=== PATIENT | female | born 1965 | race African-American/Black ===

== ENCOUNTER 2016-12-14 14:27 | Inpatient (IN) ==
[2016-12-14] MEDS ORDERED: cefTRIAXone 1,000 MG in SODIUM CHLORIDE 0.9% 100 ML IV STA (14:55)
[2016-12-14] MEDS ORDERED: methylPREDNISolone SOD SUC 125 MG/2 ML VIAL IV STA (14:55)
[2016-12-14] MEDS ORDERED: NITROGLYCERIN 2% OINT 1 INCH/GM PACK TOP STA (14:55)
[2016-12-14] MEDS ORDERED: FUROSEMIDE 100 MG/10 ML VIAL IV STA (14:55)
[2016-12-14] MEDS ORDERED: ONDANSETRON 4 MG/2 ML VIAL IV STA (14:55)
[2016-12-14] MEDS ORDERED: ALBUTEROL/IPRATROPIUM 3 ML NEB RESP TX STA (14:55)
[2016-12-14] MEDS ORDERED: ASPIRIN 325 MG TABLET PO STA (14:55)
[2016-12-14] MEDS ORDERED: cefTRIAXone 1,000 MG VIAL ONE (15:05)
[2016-12-14] MEDS ORDERED: NITROGLYCERIN 2% OINT 1 INCH/GM PACK TOP ONE (15:05)
[2016-12-14] MEDS ORDERED: FUROSEMIDE 40 MG/4 ML VIAL ONE (15:05)
[2016-12-14] MEDS ORDERED: ONDANSETRON 4 MG/2 ML VIAL ONE (15:05)
[2016-12-14] MEDS ORDERED: methylPREDNISolone SOD SUC 125 MG/2 ML VIAL ONE (15:06)
[2016-12-14] MEDS ORDERED: FUROSEMIDE 20 MG/2 ML VIAL ONE (15:06)
[2016-12-14] MEDS ORDERED: ASPIRIN 325 MG TABLET ONE (15:06)
--- NOTE | 2016-12-14 15:06 | Emergency Department Note ---
Tre Martinez Brittany, am scribing for, and in the presence of, Reid Augustine MD 15:04. Fawn Martinez Charles R, MD, personally performed the services described in this documentation, ascribed by Colleen Toledo in my presence, and it is both accurate and complete 506 . Arrival - Arrival Chief Complaint: Neuro Stated Complaint: can't talk/possible stroke ED Nursing Triage Note: Pt c/o difficulty speaking, Dizzy, ALVAREZ, John upper ext weakness, and SOB since yesterday. Mode of Arrival: Wheelchair Limitations: No Limitations Source: Patient Time Seen by Provider: 12/14/16 14:49 - History of Present Illness HPI Narrative: This is a 51 y/o black female,who presents to the ED for further evaluation of CVA like Sx. She states she noticed her sugar was high yesterday. She reports she has had a ALVAREZ, cough, and SOB along with the elevated BS. She reports the SOB is worse when laying down at night. She reports her right foot feels "heavy , like there is sand in between her toes." She also reports numbness to her hands bilaterally. Pt denies slurred speech. Pt has no other complaints/pain in the ED at this time. Pt has a PMHx of HTN and NIIMD. Pt has had a hysterectomy and hernia repair. Pt denies a family medical Hx. Pt drinks QAD and a current every day smoker, but denies the use of street drugs. Onset (ago): day(s) (Started yesterday) Consistency: constant Severity: moderate Allergies/Adverse Reactions: Allergies Allergy/AdvReac Type Severity Reaction Status Date / Time No Known Allergies Allergy Verified 10/03/15 14:09 Home Medications: Home Medications Medication Instructions Recorded Confirmed Type Doxazosin Mesylate 4 mg PO DAILY 12/14/16 12/14/16 History Valsartan 160 mg PO DAILY 12/14/16 12/14/16 History hydrALAZINE TAB [Apresoline Tab] 100 mg PO DAILY 12/14/16 12/14/16 History Review of System - Review of System 12 point system: reviewed and no additional remarkable complaints except as stated - Review of System Respiratory: Present: cough Cardiovascular: Present: dyspnea on exertion, orthopnea Neurological: Present: headache, weakness (Right foot feels "heavy" ), numbness (Numbness to both hands ) Medical,Surgical,& Family Hx - Medical History Cardio: History of: Hypertension Endocrine: History of: Diabetes Mellitus (NIDDM) (borderline diet controlled) - Surgical History Abdominal Surgeries: Surgical HX of: Hernia Repair Reproductive Surgeries: Surgical HX of;: Hysterectomy - Family History Family History: Reports;: Family Diabetes, Family Hypertension - Social History Smoking Status: Never smoker Frequency of Alcohol Use: Frequently (Every other day, per pt) Exam Vital Signs: Vital Signs Temperature 97 F L 12/14/16 15:37 Pulse Rate 136 H 12/14/16 16:00 Respiratory Rate 16 12/14/16 16:00 Blood Pressure 147/109 12/14/16 16:00 O2 Sat by Pulse Oximetry 100 12/14/16 16:00 - General General appearance: alert, in no apparent distress, in distress - Head Head exam: Present: atraumatic, normocephalic, normal inspection - Eye Eye exam: Present: normal appearance, PERRL, EOMI. Absent: nystagmus, miosis - ENT ENT exam: Present: normal exam, normal oropharynx, mucous membranes moist - Neck Neck exam: Present: normal inspection, full ROM, trachea midline. Absent: tenderness, meningismus, lymphadenopathy, thyromegaly - Chest Chest inspection: Present: normal inspection, symmetric chest wall rise. Absent : tenderness, rash, abscess - Respiratory Respiratory exam: Present: rales (Bilateral rales), wheezes (Bilateral wheezing) - Cardiovascular Cardiovascular exam: Present: regular rate, normal rhythm, normal heart sounds. Absent: murmur, rubs, gallop, clicks, JVD - Abdominal Exam Abdominal exam: Present: soft, normal bowel sounds. Absent: distention, tenderness, guarding, rebound, rigidity - Rectal Exam Rectal exam: Present: deferred - Extremities Exam Extremities exam: Present: normal inspection, full ROM, normal capillary refill. Absent: tenderness, pedal edema, joint swelling, calf tenderness - Back Exam Back exam: Present: normal inspection, full ROM. Absent: tenderness, muscle spasm, rashes - Neurological Exam Neurological exam: Present: alert, oriented X3, CN II-XII intact. Absent: motor sensory deficit - Psychiatric Psychiatric exam: Present: normal affect, normal mood. Absent: depressed, agitated, anxious, manic - Skin Skin exam: Present: warm, dry, intact, normal color. Absent: rash, cyanosis, diaphoresis, erythema, pallor, mottled Course - Consultations Consultation #1: Hospitalist will admit patient Time: 16:33 Results - Labs CBC & BMP: 12/14/16 15:26 12/14/16 15:26 - Diagnostic Findings Procedure: Chest x-ray: report reviewed by me (Continued cardiomegaly without vielka pulmonary edema. ), CT: report reviewed by me (CT head/brain wo con: No acute intracranial abnormality demonstrated. Chronic findings as detailed above. ) Critical Care Time Critical Care Time: Yes Total Critical Care Time: 60 Disposition Clinical Impression: Uncontrolled diabetes mellitus, Acute dyspnea, CHF (congestive heart failure), Elevated troponin, Peripheral neuropathy, Tobacco abuse, Bronchitis, Uncontrolled hypertension, Possible acute alcohol withdrawal Case discussed with: patient, patient's family Disposition: Still a Patient Condition: Guarded Time of Disposition: 16:35
--- NOTE | 2016-12-14 15:19 | CT Report ---
CT head/brain wo con Indication: Dizziness, headache, extremity numbness Comparison: CT brain dated March 26, 2016 Technique: Multiple axial tomographic images of the brain were obtained without the use of intravenous contrast. Findings: No acute intracranial hemorrhage or evidence of hydrocephalus. Midline structures are nondisplaced. Mild global volume loss. Periventricular and subcortical hypoattenuation again noted which is nonspecific but consistent with chronic microvascular ischemic change. Small encephalomalacia within the left temporal lobe consistent with old infarct. Paranasal sinuses and mastoid air cells are clear. IMPRESSION: No acute intracranial abnormality demonstrated. Chronic findings as detailed above. PROCEDURE INTERPRETED AT [facility] DEPARTMENT OF RADIOLOGY Final Report Signed by: Dr Sharad Harper
--- NOTE | 2016-12-14 15:24 | XRay Report ---
XR chest 2V Indication: SOB Comparison: Chest x-ray dated March 26, 2016 Technique: Frontal and lateral views of the chest Findings: Continued moderate cardiomegaly. Chronic change of the lungs without focal consolidation, pleural effusion, or pneumothorax. Osseous and surrounding soft tissue structures appear grossly unchanged. Dextroconvex curvature of the spine present. IMPRESSION: Continued cardiomegaly without vielka pulmonary edema. PROCEDURE INTERPRETED AT [facility] DEPARTMENT OF RADIOLOGY Final Report Signed by: Dr Sharad Harper
[2016-12-14 15:33] LABS: Basophils % 0.3 % (0.0-0.8); Eosinophils % 0.1 % (0.00-10.9); Hemoglobin 13.6 GM/DL (12.0-16.0); Immature Granulocytes % 0.2 %; Immature Granulocytes Absolute 0.02 #; Lymphocytes # 0.8 10*3/uL (1.4-4.0); Lymphocytes % 9.1 % (21.3-54.2); Mean Corpuscular HGB Conc 34.9 GM/DL (32-36); Mean Corpuscular Hemoglobin 34 PG (27-34); Mean Corpuscular Volume 96.8 FL (87-102); Mean Platelet Volume 11.4 FL (9.6-12.0); Monocytes # 0.4 10*3/uL (0.11-0.8); Neutrophils % 86.3 % (38.7-73.9); Platelet Count 172 T/CUMM (130-400); Red Blood Count 4.03 MC/CUMM (3.8-5.5); Red Cell Distribution Width 13.1 % (9.3-17.3); White Blood Count 9.2 T/CUMM (4-12)
[2016-12-14 15:57] LABS: Alanine Aminotransferase 50 U/L (13-56); Albumin 3.9 G/DL (3.4-5.0); Alkaline Phosphatase 101 U/L (45-117); Aspartate Amino Transferase 53 U/L (0-37); Blood Urea Nitrogen 37 MG/DL (7-18); Calcium 10.1 MG/DL (8.5-10.1); Glucose 257 MG/DL (74-106); Magnesium 1.8 MG/DL (1.8-2.4); Osmolality,Calculated 300.1 MOS/KG (273-304); Potassium 4.1 MMOL/L (3.5-5.1); Sodium 142 MMOL/L (136-145); Total Protein 8.1 G/DL (6.4-8.3); Troponin I Only 0.869 NG/ML (0.00-0.045)
[2016-12-14] MEDS ORDERED: LORazepam 2 MG/1 ML VIAL IV STA (16:34)
[2016-12-14] MEDS ORDERED: hydrALAZINE 20 MG/1 ML VIAL IV STA (16:34)
[2016-12-14] MEDS ORDERED: hydrALAZINE 20 MG/1 ML VIAL ONE (16:36)
[2016-12-14] MEDS ORDERED: LORazepam 2 MG/1 ML VIAL ONE (16:36)
--- NOTE | 2016-12-14 16:47 | EKG Report ---
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
[2016-12-14] MEDS ORDERED: ENOXAPARIN 40 MG/0.4 ML SYRINGE SUBCUT STA (16:57)
[2016-12-14] MEDS ORDERED: ENOXAPARIN 40 MG/0.4 ML SYRINGE ONE (16:58)
[2016-12-14 17:18] LABS: Apearance,Urine Slightly Hazy (Clear); Bilirubin,Urine Negative (Negative); Blood, Urine Negative (Negative); Glucose,Urine (UA) Negative (Negative); Ketones,Urine Negative (Negative); Mucus,Urine Occasional /LPF (Occasional); Nitrite,Urine Negative (Negative); Protein,Urine 100 MG/DL; RBC,Urine <1 /HPF (0-4); Squamous Epithelial Cell,Urine Occasional /HPF (0-10); Urine Color Yellow (Yellow); Urine Specific Gravity 1.006 (1.001-1.035); Urine Urobilinogen < 2.0 EU/DL (0.2-1.0); WBC,Urine 5 /HPF (0-6)
[2016-12-14] MEDS ORDERED: ACETAMINOPHEN 325 MG TABLET PO PRN (17:22)
[2016-12-14] MEDS ORDERED: BISACODYL 5 MG TABLET PO PRN (17:22)
[2016-12-14] MEDS ORDERED: ONDANSETRON 4 MG/2 ML VIAL IV PRN (17:22)
[2016-12-14] MEDS ORDERED: DOCUSATE SODIUM 100 MG CAPSULE PO PRN (17:22)
[2016-12-14 17:28] LABS: Barbiturates Screen,Urine Negative (Negative); Benzodiazepines Screen,Urine Negative (Negative); Cannabinoid Screen,Urine Negative (Negative); Opiate Screen,Urine Negative (Negative); Phencyclidine Screen,Urine Negative (Negative)
[2016-12-14] MEDS ORDERED: GLUCAGON 1 MG VIAL IM PRN (17:31)
[2016-12-14] MEDS ORDERED: DEXTROSE 50% 25 GM/50 ML VIAL IV PRN (17:31)
--- NOTE | 2016-12-14 17:35 | Hospitalist History & Physical ---
Assessment and Plan (1) Acute dyspnea Status: Acute Assessment and plan: CT ordered. No acute changes. ddimer neg. Monitor O2 saturations. Current Visit: Yes (2) Elevated troponin Status: Acute Assessment and plan: Serial troponins. Will repeat EKG in am. Consult cardiology for recs. Current Visit: Yes (3) Uncontrolled diabetes mellitus Status: Acute Assessment and plan: Monitor blood sugar. ACHS accuchecks. SSI ordered. Hemoglobin A1C ordered for am. Current Visit: Yes (4) Uncontrolled hypertension Status: Acute Assessment and plan: Monitor blood pressure. Prn hydralazine. Current Visit: Yes History of Present Illness Chief complaint: shortness of breath History of present illness: Ms. Abernathy is a 51 year old black female that presented to the ED today for further evaluation. Pt stated she was short of breath since yesterday and that she noted her hands to be numb bilaterally. She also noted that her blood sugar was increased last night. Pt is a smoker and drinks Blood Marcella's every other day. She has a history of stroke (about 13 years ago), htn, dm, hysterectomy and hernia repair. Pt. denies any slurred speech, changes in vision, loss of consciousness or fever. Also denies chest, flank, or leg pain or weakness in extremities. Pt. denies edema to any extremities. Pt does admit to intermittent night sweats and increased urinary frequency recently. Pt also states that she has a headache to the left muslim of her head along with a cough with white to greenish/yellow sputum. Pt's CT was negative but troponins were elevated so pt will be admitted for further evaluation. Home Medications Medication Instructions Recorded Confirmed Type Doxazosin Mesylate 4 mg PO DAILY 12/14/16 12/14/16 History Valsartan 160 mg PO DAILY 12/14/16 12/14/16 History hydrALAZINE TAB [Apresoline Tab] 100 mg PO DAILY 12/14/16 12/14/16 History Allergies Allergy/AdvReac Type Severity Reaction Status Date / Time No Known Allergies Allergy Verified 10/03/15 14:09 Medical,Surgical,& Family Hx - Medical History Cardio: History of: Hypertension Neurology: History of: Cerebrovascular Accident Endocrine: History of: Diabetes Mellitus (NIDDM) (borderline diet controlled) - Surgical History Abdominal Surgeries: Surgical HX of: Hernia Repair Reproductive Surgeries: Surgical HX of;: Hysterectomy - Family History Family History: Reports;: Family Diabetes, Family Hypertension - Social History Smoking Status: Current every day smoker (10 cigarettes a day) Frequency of Alcohol Use: Frequently (Every other day, per pt) - Constitutional Constitutional: Present: fatigue, night sweats. Absent: chills, fever(s) - EENT Eyes: Absent: loss of vision Nose, mouth and throat: Present: headache(s) - Cardiovascular Cardiovascular: Absent: chest pain at rest, edema - Respiratory Respiratory: Present: cough (productive), dyspnea - Gastrointestinal Gastrointestinal: Absent: abdominal pain, nausea, vomiting - Genitourinary Genitourinary: Present: urinary frequency. Absent: dysuria - Musculoskeletal Musculoskeletal: Absent: limited range of motion - Neurological Neurological: Present: headache(s), numbness. Absent: abnormal speech, confusion Exam - Constitutional General appearance: normal weight, no acute distress - Head Head exam: Present: normal inspection, normocephalic - Eye Eye exam: Present: EOMI Pupils: Present: MARCELO - Respiratory Respiratory exam: Present: clear to auscultation bilaterally - Cardiovascular Cardiovascular exam: Present: tachycardia - GI/Abdominal GI/Abdominal exam: Present: normal bowel sounds, soft. Absent: tenderness - Extremities Exam Extremities exam: Present: normal capillary refill, full ROM - Neurological Exam Neurological exam: Present: alert, oriented X3, normal gait - Psychiatric Psychiatric exam: Present: normal affect, normal mood - Skin Skin exam: Present: normal color, warm, dry Results - Labs CBC & BMP: 12/14/16 15:26 12/14/16 15:26 Lab Results: I have reviewed the past 24 hour labs
[2016-12-14] MEDS: INSULIN LISPRO 100 UNIT/ML SUBCUT SCH (21:22)
[2016-12-14] MEDS: hydrALAZINE 20 MG/1 ML VIAL IV PRN (22:31)
[2016-12-15] MEDS: hydrALAZINE 20 MG/1 ML VIAL IV PRN ×2 (05:01→17:40)
[2016-12-15 06:25] LABS: Basophils % 0.1 % (0.0-0.8); Hematocrit 34.6 VOL% (35.7-47.0); Hemoglobin 12.2 GM/DL (12.0-16.0); Immature Granulocytes % 0.4 %; Immature Granulocytes Absolute 0.04 #; Lymphocytes % 9.8 % (21.3-54.2); Mean Corpuscular HGB Conc 35.3 GM/DL (32-36); Mean Corpuscular Hemoglobin 34 PG (27-34); Mean Corpuscular Volume 95.8 FL (87-102); Mean Platelet Volume 11.5 FL (9.6-12.0); Monocytes # 0.8 10*3/uL (0.11-0.8); Monocytes % 8.6 % (1.7-12.7); Neutrophils % 81.1 % (38.7-73.9); Platelet Count 166 T/CUMM (130-400); Red Blood Count 3.61 MC/CUMM (3.8-5.5); Red Cell Distribution Width 12.9 % (9.3-17.3); White Blood Count 9.8 T/CUMM (4-12)
[2016-12-15 07:07] LABS: Albumin 3.4 G/DL (3.4-5.0); Bilirubin,Total 0.8 MG/DL (0.2-1.0); Calcium 9.2 MG/DL (8.5-10.1); Osmolality,Calculated 290.7 MOS/KG (273-304); Risk Ratio 3.74; Thyroid Stimulating Hormone 0.506 uIU/ml (0.358-3.74); Total Protein 7.3 G/DL (6.4-8.3); VLDL CHOLESTEROL 52.8 MG/DL
[2016-12-15 07:09] LABS: Troponin I Only 0.872 NG/ML (0.00-0.045)
--- NOTE | 2016-12-15 07:40 | EKG Report ---
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
--- NOTE | 2016-12-15 09:07 | Cardiology Consult Note ---
<Judith Bran E - Last Filed: 12/15/16 09:34> Assessment and Plan - Time spent with patient Time spent with patient: Greater than 30 minutes (due to assessment, plan, and documentation) (1) Acute dyspnea Status: Acute Assessment and plan: D-Dimer 0.8. Will check venous doppler BLE. Echocardiogram ordered. Current Visit: Yes (2) Elevated troponin Status: Acute Assessment and plan: Will check echocardiogram to assess cardiac function. This could be due to her elevated creatinine and tachycardia, but we will continue to monitor. Certainly , with her risk factors, she will need risk stratification, but it's possible this could be done on an outpatient basis. Will further discuss with Dr. Agustin and await her recommendations. Current Visit: Yes (3) Hyperlipidemia Status: Chronic Assessment and plan: Encouraged diet control and exercise. She has been trialed on cholesterol medication in the past but was unable to tolerate as it "made her feel bad." She is unsure what this medication was. A trial of Crestor may be an option, but she has no insurance so this may be too expensive for her. Current Visit: Yes (4) Uncontrolled hypertension Status: Acute Assessment and plan: Will adjust medications. Current Visit: Yes (5) Uncontrolled diabetes mellitus Status: Acute Assessment and plan: Will defer management to hospitalist. Current Visit: Yes (6) History of cerebrovascular accident Status: Chronic Current Visit: Yes (7) Tobacco abuse Status: Chronic Assessment and plan: Spent greater than 5 minutes discussing risks of tobacco use and benefits of total cessation. Current Visit: Yes History of Present Illness - Data of Consult Patient: new to practice Consult date: 12/14/16 Requesting Physician: Jose Ponce Primary care physician: Silvia Hill - Consult Narrative Reason for consult: SOB, elevated troponin History of present illness: Ms. 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 Her primary care provider is Ms. Hill, MEDICAL RECEPTIONIST MEDICAL ASSISTANT at the [facility]. She has a history of CVA approximately 13 years ago, hypertension, diabetes, hyperlipidemia, smoker. She has risk factors significant for hypertension, diabetes, hyperlipidemia, sedentary lifestyle, tobacco abuse. She has smoked for the last 30 years and currently is down to half a pack per day from 1 pack per day. She has no deficits from her previous stroke except for a little "heaviness" in her right foot when she walks. 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 She presented to the emergency room yesterday afternoon for further evaluation of dizziness and shortness of breath. She tells me that on Monday while at work , she got overheated and felt short of breath but once she stopped to rest and got to a room with cool air, she improved within 5-10 minutes. She also notes feeling bad on Monday. She notes her blood sugar was 300 and she was experiencing dizziness and disequilibrium. She also had some mild shortness of breath that lasted from 5-10 minutes and then went away after she got into a room with cool air. She also reports numbness and being unable to picker tender anything with her hands on Monday. She stayed at home all day and rested. Yesterday when she was at work she still had some dizziness and disequilibrium. She tells me that her coworkers informed her that she did not look well and insisted she go to the emergency room. Her glucose on initial lab was 257. She also complains of having a headache Monday and Monday. She has had a productive cough of white, and sometimes green, sputum for the past two weeks. She tells me she has had a sore throat from coughing and prior to the cough, she had lots of nasal congestion for which she has been taking over the counter cold medications. She denies PND, painful inspiration, chest pain at rest or on exertion, or shortness of breath at rest or exertion prior to current symptoms. She denies recent edema. She currently has no neurological deficits. Initial troponin was 0.869, second set of enzymes revealed troponin 0.9 with normal CK-MB and normal CPK. Third set of enzymes revealed troponin 0.872, normal CK-MB and normal CPK. Initial EKG showed sinus tachycardia with artifact. Repeat EKG this morning shows normal sinus rhythm with some inverted T -waves. She was noted to have elevated triglycerides and cholesterol on her lab work. She tells me she was previously on cholesterol medication but states it "made her feel bad." We could try Crestor, but given the fact that she has no insurance, it may be too expensive for her. She has undergone head CT which was negative for intracranial abnormality. D-Dimer was 0.8. Will further discuss with Dr. Agustin and await her recommendations. CC: Esdras Jo MD - Home Medications and Allergies Home Medications: Home Medications Medication Instructions Recorded Confirmed Type Doxazosin Mesylate 4 mg PO DAILY 12/14/16 12/14/16 History Valsartan 160 mg PO DAILY 12/14/16 12/14/16 History hydrALAZINE TAB [Apresoline Tab] 100 mg PO DAILY 12/14/16 12/14/16 History Allergies/Adverse Reactions: Allergies Allergy/AdvReac Type Severity Reaction Status Date / Time No Known Allergies Allergy Verified 10/03/15 14:09 Review of systems: - Constitutional: Present:fatigue, headache(s), As per HPI. Absent: anorexia, chills, daytime sleepiness, excessive sweating, fever(s), frequent falls, increased appetite, lethargy, malaise, night sweats, stops breathing during sleep, weakness, weight gain, weight loss, . - EENT Eyes: Present: As per HPI. Absent: blurry vision, diplopia, loss of vision Ears: Present: As per HPI. Absent: decreased hearing, ear discharge, ear pain Nose, mouth and throat: Present: headache(s), nasal congestion, sore throat, As per HPI. Absent: dysphagia, epistaxis, hoarseness, lip swelling, neck mass, neck pain, sinus pressure, throat swelling, tongue swelling, vertigo - Cardiovascular: Present: dyspnea, dyspnea on exertion, as per HPI. Absent: chest pain at rest, chest pain with activity, edema, claudication, diaphoresis, radiating jaw, neck or arm pain, lightheadedness, orthopnea, palpitations, PND - Respiratory: Present: dyspnea, dyspnea on exertion, productive cough, as per HPI. Absent: hemoptysis, wheezing, snoring, pain on inspiration - Gastrointestinal: Present: As per HPI. Absent: abdominal pain, bloating, change in bowel habits, constipation, diarrhea, heartburn, hematemesis, hematochezia, loose stools, melena, nausea, vomiting - Genitourinary: Present: As per HPI. Absent: difficulty urinating, dysuria, flank pain, hematuria, nocturia, urinary frequency, urinary incontinence - Musculoskeletal: Present: As per HPI. Absent: arthralgias, back pain, joint swelling, limited range of motion, muscle cramps, muscle weakness, myalgias - Neurological: Present: dizziness, headache(s), abnormal gait, abnormal speech , disequilibrium, As per HPI. Absent: behavioral changes, confusion, convulsions , focal weakness, frequent falls, memory loss, numbness, paresthesias, radicular pain, syncope, tremor(s) - Psychiatric: Present: As per HPI. Absent: anxiety, confusion, depression, panic attacks - Endocrine: Present: fatigue, As per HPI. Absent: cold intolerance, heat intolerance, polydipsia, polyphagia - Hematologic/Lymphatic: Present: As per HPI. Absent: easy bleeding, easy bruising, lymphadenopathy Medical,Surgical,& Family Hx - Medical History Cardio: History of: Hypertension Neurology: History of: Cerebrovascular Accident Endocrine: History of: Diabetes Mellitus (NIDDM) (borderline diet controlled), Dyslipidemia - Surgical History Neurologic Surgeries: Patient denies: Neurologic Surgery Abdominal Surgeries: Surgical HX of: Hernia Repair Reproductive Surgeries: Surgical HX of;: Hysterectomy - Family History Family History: Reports;: Family Diabetes, Family Hypertension - Social History Smoking Status: Current every day smoker (10 cigarettes a day) Have you smoked in the last 12 months: Yes (has smoked for 30 years) Frequency of Alcohol Use: Frequently (Every other day, per pt) Type of Drug Use: None Marital Status: Functional capacity: independent ambulation Physical Examination Vital Signs Temp Pulse Resp BP Pulse Ox 97.0 F L 84 20 121/87 97 12/14/16 14:28 12/14/16 14:28 12/14/16 14:28 12/14/16 14:28 12/14/16 14:28 Other: General: Present: Appears Well, No Apparent Distress. Pleasant and cooperative. Appears comfortable. HEENT: Present: PERRL, Normocephaly, atraumatic. Mucus Membranes Moist. No jaundice noted. Conjunctiva moist and clear, sclerae anicteric Neck: Present: Supple Neck, Midline Trachea, No Masses, No Bruit Cardiac: Present: Regular Rate and Rhythm, No Murmur Lungs: Present: Clear to auscultation bilaterally, no wheeze, rhonchi, rales. Neuro: Present: Awake, alert, and oriented x3. Moves all extremities well without hemiparesis or paralysis. Grossly Intact. Absent: Resting Tremor, Essential Tremor Abdomen: Present: Soft, Active Bowel Sounds, No Masses, Non-Tender, nondistended. No abdominal bruit or thrill noted. Skin: Present: Clear. Absent: Rash, No skin breakdown. Musculoskeletal: Present: No Fluid Collection, No Pain, Normal Range of Motion Extremities: Present: Normal Gait, No Clubbing, No Cyanosis, Upper Extr. Pulses 2+, Lower Extr. Pulses 2+, No edema. Capillary refill less than 3 seconds. Result/EKG - Labs CBC & BMP: 12/15/16 05:55 12/15/16 05:55 Lab Results: I have reviewed the past 24 hour labs Labs: Laboratory Results - last 24 hr 12/14/16 12/14/16 12/14/16 17:05 17:05 20:52 WBC RBC Hgb Hct MCV MCH MCHC RDW Plt Count MPV Neut % (Auto) Lymph % (Auto) [place] % (Auto) Eos % (Auto) Baso % (Auto) Neut # (Auto) Lymph # (Auto) [place] # (Auto) Eos # (Auto) Baso # (Auto) Immature Gran % Nucleated RBC % Immature Gran # Nucleated RBCs # Sodium Potassium Chloride Carbon Dioxide Anion Gap BUN Creatinine GFR Calculation BUN/Creatinine Ratio Glucose POC Glucose 372 H Hemoglobin A1c Calculated Osmolality Calcium Total Bilirubin AST ALT Alkaline Phosphatase Total Creatine Kinase CK-MB (CK-2) Troponin I B-Natriuretic Peptide Total Protein Albumin Globulin Albumin/Globulin Ratio Triglycerides Cholesterol LDL Cholesterol VLDL Cholesterol HDL Cholesterol Heart Disease Risk Ratio Free T4 TSH 3rd Generation Urine Color Yellow Urine Appearance Slightly hazy Urine pH 7.0 Ur Specific [place] 1.006 Urine Protein 100 Urine Glucose (UA) Negative Urine Ketones Negative Urine Blood Negative Urine Nitrate Negative Urine Bilirubin Negative Urine Urobilinogen < 2.0 H Urine Leukocytes Negative Urine RBC <1 Urine WBC 5 Ur Squamous Epith Cells Occasional Urine Mucus Occasional Ur Culture Indicated? Not indicated Urine Opiates Screen Negative Ur Barbiturates Screen Negative Ur Phencyclidine Scrn Negative U Amphetamine/Methamph Negative U Benzodiazepines Scrn Negative U Cocaine Metab Screen Negative U Cannabinoids Screen Negative 12/14/16 12/14/16 12/15/16 21:09 22:35 05:55 WBC RBC Hgb Hct MCV MCH MCHC RDW Plt Count MPV Neut % (Auto) Lymph % (Auto) [place] % (Auto) Eos % (Auto) Baso % (Auto) Neut # (Auto) Lymph # (Auto) [place] # (Auto) Eos # (Auto) Baso # (Auto) Immature Gran % Nucleated RBC % Immature Gran # Nucleated RBCs # Sodium Potassium Chloride Carbon Dioxide Anion Gap BUN Creatinine GFR Calculation BUN/Creatinine Ratio Glucose POC Glucose 268 H Hemoglobin A1c Calculated Osmolality Calcium Total Bilirubin AST ALT Alkaline Phosphatase Total Creatine Kinase 50 50 CK-MB (CK-2) 1.9 2.1 Troponin I 0.900 H 0.872 H B-Natriuretic Peptide Total Protein Albumin Globulin Albumin/Globulin Ratio Triglycerides Cholesterol LDL Cholesterol VLDL Cholesterol HDL Cholesterol Heart Disease Risk Ratio Free T4 TSH 3rd Generation Urine Color Urine Appearance Urine pH Ur Specific [place] Urine Protein Urine Glucose (UA) Urine Ketones Urine Blood Urine Nitrate Urine Bilirubin Urine Urobilinogen Urine Leukocytes Urine RBC Urine WBC Ur Squamous Epith Cells Urine Mucus Ur Culture Indicated? Urine Opiates Screen Ur Barbiturates Screen Ur Phencyclidine Scrn U Amphetamine/Methamph U Benzodiazepines Scrn U Cocaine Metab Screen U Cannabinoids Screen 12/15/16 12/15/16 12/15/16 05:55 05:55 05:55 WBC 9.8 RBC 3.61 L Hgb 12.2 Hct 34.6 L MCV 95.8 MCH 34 MCHC 35.3 RDW 12.9 Plt Count 166 MPV 11.5 Neut % (Auto) 81.1 H Lymph % (Auto) 9.8 L [place] % (Auto) 8.6 Eos % (Auto) 0.0 Baso % (Auto) 0.1 Neut # (Auto) 8.0 H Lymph # (Auto) 1.0 L [place] # (Auto) 0.8 Eos # (Auto) 0.0 Baso # (Auto) 0.0 Immature Gran % 0.4 Nucleated RBC % 0.0 Immature Gran # 0.04 Nucleated RBCs # 0.00 Sodium 138 Potassium 4.0 Chloride 102 Carbon Dioxide 23 Anion Gap 17.0 H BUN 45 H Creatinine 2.40 H GFR Calculation 30 BUN/Creatinine Ratio 18.00 Glucose 174 H POC Glucose Hemoglobin A1c Calculated Osmolality 290.7 Calcium 9.2 Total Bilirubin 0.80 AST 23 ALT 35 Alkaline Phosphatase 87 Total Creatine Kinase CK-MB (CK-2) Troponin I B-Natriuretic Peptide Total Protein 7.3 Albumin 3.4 Globulin 3.9 H Albumin/Globulin Ratio 0.8 L Triglycerides 264 H Cholesterol 269 H LDL Cholesterol 161.0 VLDL Cholesterol 52.8 HDL Cholesterol 72 H Heart Disease Risk Ratio 3.74 Free T4 0.95 TSH 3rd Generation 0.506 Urine Color Urine Appearance Urine pH Ur Specific [place] Urine Protein Urine Glucose (UA) Urine Ketones Urine Blood Urine Nitrate Urine Bilirubin Urine Urobilinogen Urine Leukocytes Urine RBC Urine WBC Ur Squamous Epith Cells Urine Mucus Ur Culture Indicated? Urine Opiates Screen Ur Barbiturates Screen Ur Phencyclidine Scrn U Amphetamine/Methamph U Benzodiazepines Scrn U Cocaine Metab Screen U Cannabinoids Screen 12/15/16 12/15/16 12/15/16 05:55 05:55 07:28 WBC RBC Hgb Hct MCV MCH MCHC RDW Plt Count MPV Neut % (Auto) Lymph % (Auto) [place] % (Auto) Eos % (Auto) Baso % (Auto) Neut # (Auto) Lymph # (Auto) [place] # (Auto) Eos # (Auto) Baso # (Auto) Immature Gran % Nucleated RBC % Immature Gran # Nucleated RBCs # Sodium Potassium Chloride Carbon Dioxide Anion Gap BUN Creatinine GFR Calculation BUN/Creatinine Ratio Glucose POC Glucose 153 H Hemoglobin A1c 7.3 H Calculated Osmolality Calcium Total Bilirubin AST ALT Alkaline Phosphatase Total Creatine Kinase CK-MB (CK-2) Troponin I B-Natriuretic Peptide 344 H Total Protein Albumin Globulin Albumin/Globulin Ratio Triglycerides Cholesterol LDL Cholesterol VLDL Cholesterol HDL Cholesterol Heart Disease Risk Ratio Free T4 TSH 3rd Generation Urine Color Urine Appearance Urine pH Ur Specific [place] Urine Protein Urine Glucose (UA) Urine Ketones Urine Blood Urine Nitrate Urine Bilirubin Urine Urobilinogen Urine Leukocytes Urine RBC Urine WBC Ur Squamous Epith Cells Urine Mucus Ur Culture Indicated? Urine Opiates Screen Ur Barbiturates Screen Ur Phencyclidine Scrn U Amphetamine/Methamph U Benzodiazepines Scrn U Cocaine Metab Screen U Cannabinoids Screen - EKG EKG results: interpreted by me, sinus rhythm (with T-wave abnormality) <Marilu Agustin - Last Filed: 12/15/16 23:09> History of Present Illness - Consult Narrative History of present illness: I personally interviewed and examined the patient, reviewed the chart and discussed medical decision making with Practitioner Shant. I have read this note and agree with the findings herein. SOB appears to be related to URI. Elevated Troponin is in a non-specific pattern. Will f/u echo. CC: Esdras Jo MD Physical Examination Vital Signs Temp Pulse Resp BP Pulse Ox 97.0 F L 84 20 121/87 97 12/14/16 14:28 12/14/16 14:28 12/14/16 14:28 12/14/16 14:28 12/14/16 14:28 Result/EKG - Labs CBC & BMP: 12/15/16 05:55 12/15/16 05:55 Labs: Laboratory Results - last 24 hr 12/15/16 12/15/16 12/15/16 05:55 05:55 05:55 WBC 9.8 RBC 3.61 L Hgb 12.2 Hct 34.6 L MCV 95.8 MCH 34 MCHC 35.3 RDW 12.9 Plt Count 166 MPV 11.5 Neut % (Auto) 81.1 H Lymph % (Auto) 9.8 L [place] % (Auto) 8.6 Eos % (Auto) 0.0 Baso % (Auto) 0.1 Neut # (Auto) 8.0 H Lymph # (Auto) 1.0 L [place] # (Auto) 0.8 Eos # (Auto) 0.0 Baso # (Auto) 0.0 Immature Gran % 0.4 Nucleated RBC % 0.0 Immature Gran # 0.04 Nucleated RBCs # 0.00 Sodium 138 Potassium 4.0 Chloride 102 Carbon Dioxide 23 Anion Gap 17.0 H BUN 45 H Creatinine 2.40 H GFR Calculation 30 BUN/Creatinine Ratio 18.00 Glucose 174 H POC Glucose Hemoglobin A1c Calculated Osmolality 290.7 Calcium 9.2 Total Bilirubin 0.80 AST 23 ALT 35 Alkaline Phosphatase 87 Total Creatine Kinase 50 CK-MB (CK-2) 2.1 Troponin I 0.872 H B-Natriuretic Peptide Total Protein 7.3 Albumin 3.4 Globulin 3.9 H Albumin/Globulin Ratio 0.8 L Triglycerides 264 H Cholesterol 269 H LDL Cholesterol 161.0 VLDL Cholesterol 52.8 HDL Cholesterol 72 H Heart Disease Risk Ratio 3.74 Free T4 TSH 3rd Generation 0.506 12/15/16 12/15/16 12/15/16 05:55 05:55 05:55 WBC RBC Hgb Hct MCV MCH MCHC RDW Plt Count MPV Neut % (Auto) Lymph % (Auto) [place] % (Auto) Eos % (Auto) Baso % (Auto) Neut # (Auto) Lymph # (Auto) [place] # (Auto) Eos # (Auto) Baso # (Auto) Immature Gran % Nucleated RBC % Immature Gran # Nucleated RBCs # Sodium Potassium Chloride Carbon Dioxide Anion Gap BUN Creatinine GFR Calculation BUN/Creatinine Ratio Glucose POC Glucose Hemoglobin A1c 7.3 H Calculated Osmolality Calcium Total Bilirubin AST ALT Alkaline Phosphatase Total Creatine Kinase CK-MB (CK-2) Troponin I B-Natriuretic Peptide 344 H Total Protein Albumin Globulin Albumin/Globulin Ratio Triglycerides Cholesterol LDL Cholesterol VLDL Cholesterol HDL Cholesterol Heart Disease Risk Ratio Free T4 0.95 TSH 3rd Generation 12/15/16 12/15/16 12/15/16 07:28 11:18 21:08 WBC RBC Hgb Hct MCV MCH MCHC RDW Plt Count MPV Neut % (Auto) Lymph % (Auto) [place] % (Auto) Eos % (Auto) Baso % (Auto) Neut # (Auto) Lymph # (Auto) [place] # (Auto) Eos # (Auto) Baso # (Auto) Immature Gran % Nucleated RBC % Immature Gran # Nucleated RBCs # Sodium Potassium Chloride Carbon Dioxide Anion Gap BUN Creatinine GFR Calculation BUN/Creatinine Ratio Glucose POC Glucose 153 H 172 H 152 H Hemoglobin A1c Calculated Osmolality Calcium Total Bilirubin AST ALT Alkaline Phosphatase Total Creatine Kinase CK-MB (CK-2) Troponin I B-Natriuretic Peptide Total Protein Albumin Globulin Albumin/Globulin Ratio Triglycerides Cholesterol LDL Cholesterol VLDL Cholesterol HDL Cholesterol Heart Disease Risk Ratio Free T4 TSH 3rd Generation
[2016-12-15] MEDS: INSULIN LISPRO 100 UNIT/ML SUBCUT SCH ×4 (09:17→21:09)
[2016-12-15] MEDS: VALSARTAN 160 MG TABLET PO SCH (09:29)
[2016-12-15] MEDS: PANTOPRAZOLE 40 MG TABLET PO SCH (09:29)
--- NOTE | 2016-12-15 10:11 | Ultrasound Report ---
Indication: shortness of breath Duplex scan of the bilateral lower extremity veins Technique: Duplex scan of the bilateral lower extremity veins using B-mode/grayscale imaging and Doppler spectral analysis and color flow Findings: Major venous structures of the bilateral lower extremity demonstrate a normal course and caliber. There is no evidence of deep vein thrombosis. No abnormal intrinsic echogenic lesions are demonstrated in the scanned blood vessels. Veins demonstrate good compressibility with normal color flow study and spectral analysis. Impression: Unremarkable duplex imaging of the bilateral lower extremity veins. No evidence of DVT PROCEDURE INTERPRETED AT [facility] DEPARTMENT OF RADIOLOGY Final Report Signed by: Shakir Snow
--- NOTE | 2016-12-15 11:08 | Hospitalist Progress Note ---
Assessment and Plan (1) Uncontrolled diabetes mellitus Status: Acute Current Visit: Yes (2) Elevated troponin Status: Acute Current Visit: Yes (3) Uncontrolled hypertension Status: Acute Current Visit: Yes Hospitalist: Subjective Interval history: No acute events overnight. Reports that she feels better today. Blood pressure still elevated, does not appear to have received any po medications overnight. Starting basal insulin. Restarting home medications. Cardiology evaluating. Starting coreg. Possible discharge soon. Exam - Constitutional Vitals: Period Temp Pulse Resp BP Sys/Huffman Pulse Ox Last 24 Hr 98.1 F-100.1 F 87-130 18-25 133-194/85-119 92-100 General appearance: over weight - Head Head exam: Present: normocephalic, atraumatic - Eye Eye exam: Present: EOMI Pupils: Present: MARCELO - ENT ENT exam: Present: normal exam - Neck Neck exam: Present: normal inspection - Respiratory Respiratory exam: Present: clear to auscultation bilaterally. Absent: rhonchi, wheezes - Cardiovascular Cardiovascular exam: Present: regular rate and rhythm - GI/Abdominal GI/Abdominal exam: Present: normal bowel sounds, soft. Absent: tenderness, rebound - Extremities Exam Extremities exam: Present: normal inspection - Back Exam Back exam: Present: normal inspection - Neurological Exam Neurological exam: Present: alert, oriented X3 - Psychiatric Psychiatric exam: Present: normal affect, normal mood - Skin Skin exam: Present: warm, intact Results - Labs CBC & BMP: 12/15/16 05:55 12/15/16 05:55
[2016-12-15] MEDS: CARVEDILOL 6.25 MG TABLET PO SCH ×2 (12:05→21:06)
[2016-12-15] MEDS: INSULIN NPH 100 UNIT/ML SUBCUT SCH (17:38)
[2016-12-16] MEDS: hydrALAZINE 20 MG/1 ML VIAL IV PRN (05:06)
[2016-12-16] MEDS: CARVEDILOL 6.25 MG TABLET PO SCH (08:32)
[2016-12-16] MEDS: PANTOPRAZOLE 40 MG TABLET PO SCH (08:32)
[2016-12-16] MEDS: VALSARTAN 160 MG TABLET PO SCH (08:32)
[2016-12-16] MEDS: INSULIN LISPRO 100 UNIT/ML SUBCUT SCH ×2 (08:33→12:13)
[2016-12-16] MEDS: INSULIN NPH 100 UNIT/ML SUBCUT SCH (08:34)
--- NOTE | 2016-12-16 09:34 | Discharge Summary ---
<Nishant Poncecorbin - Last Filed: 12/16/16 09:50> Hospital Course - Hospital Course Hospital Course: Ms. Abernathy is a 51 yr old black female that was admitted to the hospital on after presenting to the ED for further evaluation of shortness of breath and numbness to hands bilaterally. She has a history of stroke (about 13 years ago) , htn, dm, hysterectomy and hernia repair. Pt denied any other issues (chest pain, headache, cough, vision loss, or weakness) but the patient's troponins were elevated so pt was admitted for further eval. Serial enzymes were drawn. Pt 's troponins went from 0.[address] was negative. ddimer negative. Pt was also evaluated by cardiology. Elevated troponins possibly due to increase in creatinine and tachycardia. Outpatient testing suggested. SOB presumed to be secondary to URI. Echo to be performed. MD to follow. Pt.'s blood pressure has been slightly elevated during course of stay but coreg has been added to patient's medication regimen. Pt. has not had any further complaints of breathing or numbness. Pt. has been ambulating in hallways without distress. Pt. to be discharged home today. Diagnosis - Discharge Diagnosis (1) Acute dyspnea Status: Acute (2) Elevated troponin Status: Acute (3) Uncontrolled diabetes mellitus Status: Acute (4) Uncontrolled hypertension Status: Acute Specialty Discharge - Follow Up or Referrals Follow up with: Marilu Agustin MD [Physician] - (APPT. ON 12/29/16 AT 10:00 AT [facility] FOR ECHOCARDIOGRAM APPT. ON 01/06/17 AT 10:[address] AGUSTIN) Discharge Plan - Discharge Medications New Carvedilol [Coreg] 6.25 mg PO BID #30 tablet hydrALAZINE TAB [Apresoline Tab] 75 mg PO TID #90 tablet Discontinued hydrALAZINE TAB [Apresoline Tab] 100 mg PO DAILY Valsartan 160 mg PO DAILY Doxazosin Mesylate 4 mg PO DAILY - Follow Up or Referral Follow Up: Marilu Agustin MD [Physician] - (APPT. ON 12/29/16 AT 10:00 AT [facility] ECHOCARDIOGRAM APPT. ON 01/06/17 AT 10:[address] AGUSTIN) - Forms/Instructions Instructions: Angina (DC), Chronic Hypertension (DC) Exam - Constitutional Vitals: Period Temp Pulse Resp BP Sys/Huffman Pulse Ox Last 24 Hr 97.1 F-98.6 F 71-93 16-20 133-183/89-113 97-99 Discharge Results Procedures and tests throughout hospitalization: Pending Orders 12/14/16 21:09 Thiamin (Vitamin B1), WB Routine Labs on day of discharge: Labs from last 24 hours 12/16/16 12/16/16 12/15/16 12:08 07:55 21:08 POC Glucose 123 H 216 H 152 H 12/15/16 16:42 POC Glucose 193 H DS: Provider Date of admission: 12/14/16 16:35 Primary care physician: . No PCP Attending physician on admission: Esdras Jo MD Consults: 12/14/16 17:28 Consult to Pharmacy [CONS] Routine Reason for Pharmacy Consult: Adjust Meds Renal Funct Consult to Physician [CONS] Routine Comment: Consulting Provider: Marilu Agustin Discharging clinician: Jose Ponce NP <Esdras Jo - Last Filed: 12/16/16 12:25> Hospital Course - Hospital Course Hospital Course: Patient seen and examined with ADITHYA Ponce, agree with hospital course as outlined. Echocardiogram with moderate pericardial effusion, she will follow-up with Dr. Agustin in 3-4 weeks. Her medications have also been adjusted. - Time spent with patient Time with patient DS: Less than 30 minutes Diagnosis - Discharge Diagnosis (1) Uncontrolled diabetes mellitus Status: Chronic (2) Elevated troponin Status: Acute (3) Uncontrolled hypertension Status: Chronic Discharge Plan - Discharge Data Condition at Discharge: Stable Discharge Diet: heart healthy Activity: resume usual activities as tolerated Hygiene: no restrictions Weight Bearing at Discharge: full weight bearing Driving: no restrictions Contact your physician if you experience:: Nausea/Vomiting, Shortness of breath Exam - Constitutional General appearance: over weight - Head Head exam: Present: normocephalic, atraumatic - Eye Eye exam: Present: EOMI Pupils: Present: MARCELO - ENT ENT exam: Present: normal exam - Neck Neck exam: Present: normal inspection. Absent: tenderness - Respiratory Respiratory exam: Present: clear to auscultation bilaterally. Absent: rhonchi, wheezes - Cardiovascular Cardiovascular exam: Present: regular rate and rhythm - GI/Abdominal GI/Abdominal exam: Present: normal bowel sounds, soft. Absent: tenderness, rebound - Extremities Exam Extremities exam: Present: normal inspection - Back Exam Back exam: Present: normal inspection - Neurological Exam Neurological exam: Present: alert, oriented X3 - Psychiatric Psychiatric exam: Present: normal affect, normal mood - Skin Skin exam: Present: warm, intact
--- NOTE | 2016-12-16 10:15 | ECHO Report ---
Gabrielle Abernathy Exam Date: 12/15/2016 08:54 Referring Physician: Technologist: Paty George RDCS Age: 51 Ht (in): 70 Wt (lb): 180 Gender: F Exam Location: [facility] Echo Indications: Dyspnea, unspecified, Elevated troponin, Uncontrolled diabetes, Uncontrolled HTN, Nicotine dependence, cigarettes, uncomplicated, hx CVA, NIDDM, Chronic fatigue, unspecified, Cough BP: 190 / 119 HR: 101 Rhythm: Sinus Technical Quality: Fair IMPRESSIONS Normal LV systolic function, ejection fraction 60%. Grade 1/4 diastolic dysfunction. Moderate to severe concentric left ventricular hypertrophy. Moderate left atrial enlargement. Mild tricuspid regurgitation. Pulmonary artery pressures estimated at 47 mmHg. Moderate pericardial effusion without evidence of A knot. MEASUREMENTS (Male / Female) Normal Values 2D ECHO LV Diastolic Diameter PLAX 3.8 cm 4.2 - 5.9 / 3.9 - 5.3 cm LV Systolic Diameter PLAX 2.7 cm LV Fractional Shortening PLAX 28.8 % IVS Diastolic Thickness 1.7 cm 0.6 - 1.0 / 0.6 - 0.9 cm LVPW Diastolic Thickness 2.0 cm 0.6 - 1.0 / 0.6 - 0.9 cm RV Internal Dim ED PLAX 2.9 cm Aortic Root Diameter 3.3 cm LA Systolic Diameter LX 5.0 cm 3.0 - 4.0 / 2.7 - 3.8 cm DOPPLER TR Peak Velocity 303.0 cm/s TR Peak Gradient 36.7 mmHg FINDINGS Left Ventricle Normal left ventricular cavity size. Severe left ventricular hypertrophy. Left ventricular ejection fraction is estimated at 60 %. Right Ventricle The right ventricle is normal in size and function. Right Atrium Mild atrial enlargement in apical view (elongated RA). Left Atrium Moderate atrial enlargement in apical view (elongated LA). Mitral Valve Morphologically normal mitral valve without significant stenosis or prolapse. There is no mitral regurgitation. Aortic Valve Morphologically normal aortic valve without significant sclerosis or stenosis. There is no aortic regurgitation. Tricuspid Valve Morphologically normal tricuspid valve. Trace to mild tricuspid valve regurgitation. Tricuspid regurgitation velocities suggest a PAP of 47 mmHg. Pulmonic Valve Morphologically normal pulmonic valve without significant stenosis. There is no pulmonic regurgitation. Pericardium Moderate pericardial effusion. There is no evidence of tamponade not. There is no right-sided chamber collapse. Tricuspid inflow velocity has a 12% JAR inspiratory variation, and mitral inflow velocity has a 16% inspiratory variation. Aorta Normal ascending aorta dimension. Marilu Agustin MD (Electronically Signed) Final Date: 16 December 2016 10:14
--- NOTE | 2016-12-16 10:24 | Cardiology Progress Note ---
<Judith Bran Lidia - Last Filed: 12/16/16 10:25> Assessment and Plan - Time spent with patient Time spent with patient: Less than 30 minutes (1) Acute dyspnea Status: Acute Assessment and plan: D-Dimer 0.8. No evidence of DVT from bilateral lower extremity doppler. Echo revealed EF 60%, grade I/IV diastolic dysfunction, moderate to severe LVH, moderate left atrial enlargement, mild tricuspid regurgitation, PAP est at 47mmHg, moderate pericardial effusion without evidence of A knot. This was not felt to be due to ACS. Elevated troponin was in a non-specific pattern. I believe her SOB was related to an URI. (2) Elevated troponin Status: Acute Assessment and plan: Elevated Troponin is in a non-specific pattern. She will be scheduled for a follow up echocardiogram in 2-3 weeks prior to her follow up appointment with Dr. Agustin. (3) Hyperlipidemia Status: Chronic Assessment and plan: Encouraged diet control and exercise. She has been trialed on cholesterol medication in the past but was unable to tolerate as it "made her feel bad." She is unsure what this medication was. Further treatment may be pursued at follow up with PCP. (4) Uncontrolled hypertension Status: Acute Assessment and plan: Will adjust medications. She was placed on Coreg 6.25mg PO BID during this hospitalization in addition to her valsartan 160mg po daily and hydralazine 100mg PO daily. Given her renal insufficiency, her valsartan will need to be held and we will change her hydralazine to 75mg po TID. She will need to follow up with her primary care provider on Monday for BMP w/ Mg for further management of hypertension and diabetes. (5) Uncontrolled diabetes mellitus Status: Acute Assessment and plan: Will defer management to hospitalist. (6) History of cerebrovascular accident Status: Chronic (7) Tobacco abuse Status: Chronic Assessment and plan: Spent greater than 5 minutes discussing risks of tobacco use and benefits of total cessation. Cardiology - PN: Subj Interval history: Ms. Abernathy is resting in the bed upon exam today in no acute distress. She reports she had an uneventful night. She does tell me that she has some indigestion during the night and has felt her heart "flutter." Upon reviewing her monitor technician, she has had occasional PVCs but no other ectopy. Her potassium is 4.0. Discussed this patient with Dr. Jo and she will be discharged home today. Dr. Agustin has reviewed her echocardiogram and she was noted to have ejection fraction of 60%, grade 1 out of 4 diastolic dysfunction, moderate to severe LVH, mild TR, and a moderate effusion. She will follow-up in the clinic with Dr. Agustin in 3-4 weeks. She denies any further shortness of breath. Exam (Progress Note) - Constitutional Vitals: Period Temp Pulse Resp BP Sys/Huffman Pulse Ox Last 24 Hr 97.1 F-98.6 F 71-93 16-20 135-183/89-113 97-100 Exam: General: Present: Appears Well, No Apparent Distress. Pleasant and cooperative. Appears comfortable. HEENT: Present: PERRL, Normocephaly, atraumatic. Mucus Membranes Moist. No jaundice noted. Conjunctiva moist and clear, sclerae anicteric Neck: Present: Supple Neck, Midline Trachea, No Masses, No Bruit Cardiac: Present: Regular Rate and Rhythm, No Murmur Lungs: Present: Clear to auscultation bilaterally, no wheeze, rhonchi, rales. Neuro: Present: Awake, alert, and oriented x3. Moves all extremities well without hemiparesis or paralysis. Grossly Intact. Absent: Resting Tremor, Essential Tremor Abdomen: Present: Soft, Active Bowel Sounds, No Masses, Non-Tender, nondistended. No abdominal bruit or thrill noted. Skin: Present: Clear. Absent: Rash, No skin breakdown. Musculoskeletal: Present: No Fluid Collection, No Pain, Normal Range of Motion Extremities: Present: Normal Gait, No Clubbing, No Cyanosis, Upper Extr. Pulses 2+, Lower Extr. Pulses 2+, No edema. Capillary refill less than 3 seconds. Result/EKG - Labs CBC & BMP: 12/15/16 05:55 12/15/16 05:55 Lab Results: I have reviewed the past 24 hour labs Labs: Laboratory Results - last 24 hr 12/15/16 12/15/16 12/15/16 11:18 16:42 21:08 POC Glucose 172 H 193 H 152 H 12/16/16 07:55 POC Glucose 216 H - EKG EKG results: interpreted by me, sinus rhythm (with occasional PVCs. ) Specialty Discharge - Follow Up or Referrals Follow up with: Marilu Agustin MD [Physician] - (APPT. ON 12/29/16 AT 10:00 AT [facility] FOR ECHOCARDIOGRAM APPT. ON 01/06/17 AT 10:[address] [facility] [address] AGUSTIN) - Speciality Discharge Instructions Cardiology Instructions: She needs to follow up with her primary care provider, or needs to establish care with a provider, on Monday to follow up on her hypertension and diabetes. At that visit, she needs a BMP w/ Mg. <Marilu Agustin - Last Filed: 12/16/16 20:12> Cardiology - PN: Subj Interval history: I have personally interviewed and evaluated the patient, reviewed the chart and discussed medical decision-making with practitioner Shant. I have read this note and agree with her documentation here in. Exam (Progress Note) - Constitutional Vitals: Period Temp Pulse Resp BP Sys/Huffman Pulse Ox Last 24 Hr 97.2 F-98.6 F 71-86 16-20 133-183/89-113 97-99 Result/EKG - Labs CBC & BMP: 12/15/16 05:55 12/15/16 05:55 Labs: Laboratory Results - last 24 hr 12/15/16 12/15/16 12/16/16 16:42 21:08 07:55 POC Glucose 193 H 152 H 216 H 12/16/16 12:08 POC Glucose 123 H
[2016-12-16 11:30] VITALS: BP 133/89
[2016-12-16] MEDS ORDERED: hydrALAZINE 25 MG TABLET PO SCH (15:00)
== END 2016-12-16 13:35 | disposition home or self-care (01) | DRG 153 ==
LOC: N.ED 14:27 → N.EDINP 16:35 → N.TELES 17:03
PROVIDERS: ADMIT Internal Medicine; ATTEND Internal Medicine

== ENCOUNTER 2017-05-14 15:10 | Inpatient (IN) ==
[2017-05-14] MEDS ORDERED: HYDROmorphone 2 MG/1 ML VIAL IV STA (15:33)
[2017-05-14] MEDS ORDERED: CLINDAMYCIN INJ 900 MG in PREMIX 1 EACH IV STA (15:33)
[2017-05-14] MEDS ORDERED: methylPREDNISolone SOD SUC 125 MG/2 ML VIAL IV STA (15:35)
[2017-05-14] MEDS ORDERED: ONDANSETRON 4 MG/2 ML VIAL IV STA (15:35)
[2017-05-14] MEDS ORDERED: hydrALAZINE 20 MG/1 ML VIAL IV STA (15:39)
--- NOTE | 2017-05-14 15:39 | Emergency Department Note ---
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 pt states the side of her left neck is tender and the back of her throat feels like it is going to burst. pt is sweating and breathing fast. bs in triage is 181mg/dl Mode of Arrival: Wheelchair Limitations: No Limitations Source: Patient Time Seen by Provider: 05/14/17 15:33 - History of Present Illness HPI Narrative: This 51-year-old black female presents with abrupt onset of sore throat Monday with a rapid development of pain on swallowing and progression of difficulty in swallowing as time progressed. Notable in the last 48 hours has been a hot potato voice and visible mild left cheek and jaw swelling. She denies any shortness of breath in association with this and has had alleged chills and fever although she presents here afebrile. Notable is a history of diabetes, however, her blood sugars have been fairly well controlled during this with a blood sugar of 181 in triage. Although she has tried to control her sugar during this episode, she has failed to do so with her blood pressure. She presents with severe elevations in blood pressure but denies shortness of breath , chest pain, diaphoresis, headache, slurred speech, visual changes, or focal deficits in association with this. Of note, the patient is a heavy smoker. Currently she is in no acute medical distress. Onset (ago): day(s) (Patient presents 5 days post onset of symptoms) Allergies/Adverse Reactions: Allergies Allergy/AdvReac Type Severity Reaction Status Date / Time No Known Allergies Allergy Verified 01/31/17 21:46 Home Medications: Home Medications Medication Instructions Recorded Confirmed Type Aspirin Chew Tab 81 mg PO DAILY 01/28/17 01/31/17 History Doxazosin Mesylate 4 mg PO DAILY 01/28/17 01/28/17 History Metoprolol Succinate Xl [Toprol Xl] 100 mg PO DAILY 01/28/17 01/28/17 History Valsartan 160 mg PO DAILY 01/28/17 01/31/17 History hydroCHLOROthiazide 12.5 mg PO DAILY 01/28/17 01/31/17 History [Hydrochlorothiazide] Review of System - Review of System 12 point system: reviewed and no additional remarkable complaints except as stated - Review of System Constitutional: Present: as per HPI Eyes: Present: as per HPI Head/Ears/Nose/Throat: Present: see HPI Respiratory: Present: as per HPI Cardiovascular: Present: as per HPI Neurological: Present: as per HPI Medical,Surgical,& Family Hx - Medical History Cardio: History of: Hypertension Neurology: History of: Cerebrovascular Accident Endocrine: History of: Diabetes Mellitus (NIDDM) (borderline diet controlled), Dyslipidemia - Surgical History Neurologic Surgeries: Patient denies: Neurologic Surgery Abdominal Surgeries: Surgical HX of: Hernia Repair Reproductive Surgeries: Surgical HX of;: Hysterectomy - Family History Family History: Reports;: Family Diabetes, Family Hypertension - Social History Smoking Status: Current every day smoker Frequency of Alcohol Use: None Type of Drug Use: None Exam Physical Examination: GENERAL: Well developed, well nourished black female in no acute distress. HEENT: Normocephalic. Slight left facial and mandibular swelling no trauma. Moist mucous membranes. EOMI. PERRLA. ENT ears normal, nose normal, throat reveals massive left peritonsillar abscess NECK: Supple. Cervical adenopathy. CARDIAC: Regular. 1/4 linda, loud p2. Heart rate 130 CHEST: Clear to auscultation. No respiratory distress. O2 sat 100% ABDOMEN: Soft. Nontender. Active bowel sounds. EXTREMITIES: No trauma. Normal ROM. No pedal edema. SKIN: No diaphoresis. No rash. NEURO: Alert. Oriented 3. Motor, sensory, vibratory intact. Phonation flores she has classic hot potato voice. No focal deficits. Vital Signs: Vital Signs Temperature 97.6 F 05/14/17 16:58 Pulse Rate 130 H 05/14/17 16:58 Respiratory Rate 25 H 05/14/17 16:58 Blood Pressure 227/166 05/14/17 16:58 O2 Sat by Pulse Oximetry 100 05/14/17 15:12 Course - Reevaluation(s) Reevaluation #1: Advised patient of need for ENT intervention. 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 For this reason he desired an elective resection after stabilization of her other medical problems and in light of his recommendation for chronic steroids in regards to her airway compromise, he felt best that the hospitalist admit the patient given her diabetes and the severity of her hypertension. He would plan for surgical intervention in the next 24-48 hours. Consultation #2: Discussed with hospitalist service will admit for further evaluation treatment. Results - Labs CBC & BMP: 05/14/17 15:36 05/14/17 15:36 Labs: I reviewed the laboratory noted the elevated white count, low potassium, and renal azotemia - Diagnostic Findings Procedure: CT: image reviewed by me, report reviewed by me, pending (Left peritonsillar fossa mass and abscess. Also notable was diffuse adenopathy bilaterally of the neck as well as left maxillary sinus opacification) Disposition Clinical Impression: Left retropharyngeal abscess/mass, Poorly controlled hypertension, Hypokalemia , Diabetes Case discussed with: patient Disposition: Still a Patient Condition: Guarded Time of Disposition: 17:05
[2017-05-14] MEDS ORDERED: METOPROLOL TARTRATE 5 MG/5 ML VIAL IV STA (15:40)
[2017-05-14 15:44] LABS: Basophils # 0.1 10*3/uL (0.0-0.2); Basophils % 0.3 % (0.0-0.8); Eosinophils % 0.1 % (0.00-10.9); Hematocrit 34.5 VOL% (35.7-47.0); Hemoglobin 12.7 GM/DL (12.0-16.0); Immature Granulocytes % 2.1 %; Immature Granulocytes Absolute 0.37 #; Lymphocytes # 1.4 10*3/uL (1.4-4.0); Lymphocytes % 7.8 % (21.3-54.2); Mean Corpuscular HGB Conc 36.8 GM/DL (32-36); Mean Corpuscular Hemoglobin 34 PG (27-34); Mean Corpuscular Volume 93.2 FL (87-102); Mean Platelet Volume 11.2 FL (9.6-12.0); Monocytes # 2.2 10*3/uL (0.11-0.8); Monocytes % 12.5 % (1.7-12.7); Neutrophils # 13.5 10*3/uL (1.4-7.4); Neutrophils % 77.2 % (38.7-73.9); Platelet Count 214 T/CUMM (130-400); Red Cell Distribution Width 13.9 % (9.3-17.3); White Blood Count 17.5 T/CUMM (4-12)
[2017-05-14] MEDS ORDERED: SODIUM CHLORIDE 0.9% 1,000 ML IV STA (15:48)
[2017-05-14] MEDS ORDERED: methylPREDNISolone SOD SUC 125 MG/2 ML VIAL ONE (15:57)
[2017-05-14] MEDS ORDERED: ONDANSETRON 4 MG/2 ML VIAL ONE (15:57)
[2017-05-14] MEDS ORDERED: CLINDAMYCIN INJ 50 ML IV ONE (15:57)
[2017-05-14] MEDS ORDERED: HYDROmorphone 2 MG/1 ML VIAL ONE (15:57)
[2017-05-14] MEDS ORDERED: hydrALAZINE 20 MG/1 ML VIAL ONE (15:57)
[2017-05-14 16:04] LABS: PT Patient Result 10.7 SECS; Partial Thromboplastin Time 34.1 SECS (0-40)
[2017-05-14 16:14] LABS: Band Neutrophils 2 % (0-10); Eosinophils 1 % (0-10); Lymphocytes 10 % (20-55); Platelet Estimate Normal; Segmented Neutrophils 80 % (50-85); Total Cells Counted 100
[2017-05-14 16:17] LABS: Albumin 2.8 G/DL (3.4-5.0); Bilirubin,Total 0.5 MG/DL (0.2-1.0); Calcium 8.8 MG/DL (8.5-10.1); Osmolality,Calculated 287.2 MOS/KG (273-304); Potassium 3.2 MMOL/L (3.5-5.1); Total Protein 8.2 G/DL (6.4-8.3)
--- NOTE | 2017-05-14 16:26 | CT Report ---
Exam: CT soft tissue neck wo con Date: 05/14/2017 3:58 PM Comparison: None Indication: Peritonsillar abscess Total DLP: 293.3 mGy*cm Technical: Axial sagittal and coronal imaging was obtained without contrast enhancement. This does limit the examination. Dose reduction was performed with decreasing kv and mA and automated exposure Findings: The lower brainstem cerebellum and cerebral hemispheres as imaged appear intact. The paranasal sinuses reveal inflammation in the left maxillary antrum with near complete opacification. Remaining paranasal sinuses are intact. The mastoids are unremarkable. The examination reveals soft tissue mixed Density in the hypopharynx region with narrowing of the hypopharynx. This area measures approximately 3.9 x 2.9 cm. Small calcification is present along the inferior lateral margin of this soft tissue density. The uvula and epiglottis are demonstrated. True and false cord regions are intact. The trachea slightly deviated to the right. Thyroid gland is unremarkable. Small nodes are present in the carotid triangle regions bilaterally anteriorly and posteriorly. The submandibular glands are intact. The parotid glands is unremarkable. Exam reveals narrowing of the left torus tubarius and fossa Rosenmuller. Prevertebral soft tissue swelling is noted The lung apices are unremarkable. The anterior mediastinum reveals a few small tiny nodes. The aorta is intact. Bony structures reveal degenerative changes of the cervical spine at C3-4 C5-6 and C6-7. Impression: 1. Mixed soft tissue density in the left peritonsillar fossa hypopharynx region with narrowing of the hypopharynx and oral pharyngeal airway deviation to the right. The study is somewhat limited without use of intravenous contrast otherwise. This could be secondary to a component of abscess, I cannot exclude underlying mass in this region but seems less likely 2. Left maxillary sinusitis with subtotal fluid opacification or cyst present. 3. Multiple nodes present in the anterior posterior carotid triangle extending from the skull base to the supraclavicular region bilaterally left greater than right. Critical test report discussed with Dr. Atkins. Patient's creatinine is 2.3. PROCEDURE INTERPRETED AT [facility] [place] DEPARTMENT OF RADIOLOGY Final Report Signed by: Dr. Misbah Marroquin
[2017-05-14] MEDS ORDERED: METOPROLOL TARTRATE 5 MG/5 ML VIAL IV ONE (16:27)
[2017-05-14] MEDS ORDERED: BENZOCAINE/BUTAMBEN/TETRACAINE SPRAY 20 GM CAN TOP ONE (16:41)
[2017-05-14] MEDS ORDERED: LIDOCAINE 2%/EPI 20 ML VIAL ONE (16:43)
--- NOTE | 2017-05-14 16:55 | Consultation ---
Assessment and Plan - Time spent with patient Time spent with patient: Greater than 30 minutes (1) Peritonsillar cellulitis Status: Acute Assessment and plan: I recommend she be admitted for antibiotic treatment additionally I would recommend if her sugars can be controlled we also use steroids to help decrease the swelling. I will plan on taking her to surgery on Monday for a quinsy tonsillectomy/possible tonsil biopsy/flexible laryngoscopy/oropharyngeal exam under anesthesia. I discussed this with the patient she is willing to proceed with this care plan. I talked with the emergency room physician who will contact the hospitalist for admission because of her multiple comorbidities. I will consult this patient and see her tomorrow. Current Visit: Yes (2) Necrotic tonsils Status: Acute Current Visit: Yes (3) Cervical lymphadenopathy Status: Acute Current Visit: Yes (4) Uncontrolled diabetes mellitus Status: Chronic Current Visit: No (5) Elevated troponin Status: Acute Current Visit: No History of Present Illness - Data of Consult Patient: new to practice Consult date: 05/14/17 Requesting Physician: Ozzie Atkins - Consult Narrative Reason for consult: Left peritonsillar swelling History of present illness: Ms. Abernathy is a 51 year old female multiple medical comorbidities including poorly controlled hypertension and diabetes with new onset dysphasia and odynophagia presents to the emergency room and found to have left peritonsillar swelling potentially consistent with peritonsillar abscess. CT without contrast was performed secondary to her poor renal function. ENT is consulted for evaluation and treatment. She states nothing is making this better or worse and notes a severe gag reflex CC: - Home Medications and Allergies Home Medications: Home Medications Medication Instructions Recorded Confirmed Type Aspirin Chew Tab 81 mg PO DAILY 01/28/17 01/31/17 History Doxazosin Mesylate 4 mg PO DAILY 01/28/17 01/28/17 History Metoprolol Succinate Xl [Toprol Xl] 100 mg PO DAILY 01/28/17 01/28/17 History Valsartan 160 mg PO DAILY 01/28/17 01/31/17 History hydroCHLOROthiazide 12.5 mg PO DAILY 01/28/17 01/31/17 History [Hydrochlorothiazide] Allergies/Adverse Reactions: Allergies Allergy/AdvReac Type Severity Reaction Status Date / Time No Known Allergies Allergy Verified 01/31/17 21:46 12 point system: reviewed and no additional remarkable complaints except as stated Medical,Surgical,& Family Hx - Medical History Cardio: History of: Hypertension Neurology: History of: Cerebrovascular Accident Endocrine: History of: Diabetes Mellitus (NIDDM) (borderline diet controlled), Dyslipidemia - Surgical History Neurologic Surgeries: Patient denies: Neurologic Surgery Abdominal Surgeries: Surgical HX of: Hernia Repair Reproductive Surgeries: Surgical HX of;: Hysterectomy - Family History Family History: Reports;: Family Diabetes, Family Hypertension - Social History Smoking Status: Current every day smoker Frequency of Alcohol Use: None Type of Drug Use: None Exam - Constitutional Vitals: Period Temp Pulse Resp BP Sys/Huffman Pulse Ox Last 24 Hr 97.6 F 130 25 227/166 100 General appearance: no acute distress, over weight - Head Head exam: Present: normal inspection, normocephalic - Eye Eye exam: Present: EOMI Pupils: Present: MARCELO - ENT ENT exam: Present: normal exam, normal external ear exam - Expanded ENT Exam Ear exam: Present: TM's normal bilaterally Mouth exam: Present: moist, muffled voice Teeth exam: Present: other (Upper and lower dentures) Throat exam: Present: L peritonsillar mass, post pharyngeal edema, tonsillar exudate (Necrotic left tonsil with gag reflex limiting oropharyngeal exam no distinct fluctuance of soft palate were able to palpate) - Neck Neck exam: Present: lymphadenopathy - Respiratory Respiratory exam: Present: other - GI/Abdominal GI/Abdominal exam: Present: soft - Extremities Exam Extremities exam: Present: normal inspection, normal capillary refill - Neurological Exam Neurological exam: Present: alert, oriented X3, CN II-XII intact - Psychiatric Psychiatric exam: Present: normal affect, anxious - Skin Skin exam: Present: normal color, warm Results - Labs CBC & BMP: 05/14/17 15:36 05/14/17 15:36 Lab Results: I have reviewed the past 24 hour labs - Diagnostic Findings Procedure: CT: pending, image reviewed by me, report reviewed by me (With CT and clinical exam I see no discrete obvious peritonsillar abscess and with exam I am concerned of a potential primary tonsillar cancer)
[2017-05-14] MEDS ORDERED: BENZOCAINE/BUTAMBEN/TETRACAINE SPRAY 20 GM CAN TOP STA (17:08)
[2017-05-14] MEDS ORDERED: LIDOCAINE 2% 20 ML VIAL MISC INJ ONE (17:09)
[2017-05-14] MEDS ORDERED: HYDROmorphone 2 MG/1 ML VIAL IV PRN (17:26)
[2017-05-14] MEDS ORDERED: HYDROcod/ACETAMIN 7.5-325 MG/15 ML UDCUP PO PRN ×2 (17:26)
[2017-05-14] MEDS ORDERED: ACETAMINOPHEN 325 MG TABLET PO PRN ×2 (17:26)
[2017-05-14] MEDS ORDERED: LACTULOSE 20 GM/30 ML UDCUP PO PRN (17:26)
--- NOTE | 2017-05-14 17:29 | XRay Report ---
Exam: XR chest 1V portable Date: 05/14/2017 5:02 PM Indication: Peritonsillar abscess preop respiratory evaluation Comparison: 12/14/2016 Technical: AP Findings: Cardiomegaly is present. External cardiac leads oxygen tubing are present. ASVD is present. No obvious infiltrate or effusion. Mediastinum is otherwise intact. The bony structures are intact. Impression: 1. Cardiomegaly without decompensation. PROCEDURE INTERPRETED AT [facility] DEPARTMENT OF RADIOLOGY Final Report Signed by: Dr. Misbah Marroquin
[2017-05-14] MEDS ORDERED: DEXTROSE 50% 25 GM/50 ML SYRINGE IV PRN (17:33)
[2017-05-14] MEDS ORDERED: GLUCAGON 1 MG VIAL IM PRN (17:33)
[2017-05-14] MEDS ORDERED: PHENOL 1.4% THROAT SPRAY 177 ML BOTTLE PO PRN (17:34)
--- NOTE | 2017-05-14 17:37 | Hospitalist History & Physical ---
Assessment and Plan - Time spent with patient Time spent with patient: Greater than 30 minutes (1) Peritonsillar mass Status: Acute Assessment and plan: 51-year-old -[place] female with history of uncontrolled diabetes and hypertension admitted by the hospitalist service with tonsillar abscess versus carcinoma with enlarged lymph nodes. Patient has odynophagia and dysphagia and will have difficulty controlling her secretions therefore she will be admitted to the ICU for close watch. She also has hypertensive urgency and this will need to be controlled. She has already been given hydralazine and Lopressor IV in the ED with blood pressure now 206/112. We will add her p.o. home medicines to help control and continue to monitor. Will monitor patient's swallowing and will try to limit her p.o. intake as much as possible to avoid aspiration. Patient's blood sugars are also out of control so we will get a hemoglobin A1c and start sliding scale insulin. Dr. Hester from ENT has already seen and examined the patient and he has recommended clindamycin and Solu-Medrol every 6 hours [id number]. He is planning on taking the patient for surgery on Monday. Patient also has acute kidney injury with a creatinine upon admission of 2.5. She had normal creatinine in March of last year. We will aggressively hydrate the patient for severe sepsis protocol due to her leukocytosis and tachycardia along with her acute kidney injury. Dr. Salmeron will see and examined patient and further recommendations to follow. Current Visit: Yes (2) Leukocytosis Status: Acute Current Visit: Yes (3) Acute kidney injury Status: Acute Current Visit: Yes (4) Uncontrolled diabetes mellitus Status: Chronic Current Visit: No (5) Tobacco abuse Status: Chronic Current Visit: No (6) Uncontrolled hypertension Status: Chronic Current Visit: No (7) Cervical lymphadenopathy Status: Acute Current Visit: Yes History of Present Illness Chief complaint: Painful swallowing History of present illness: Ms. Abernathy is a 51 year old -[place] female with history of uncontrolled diabetes and hypertension presenting to the ED with a 5 day history of painful swallowing and swelling of her right tonsil. Patient states this has been associated with chills, intermittent fevers, difficulty swallowing , painful swallowing, headache, and loss of appetite. Patient states she feels like her tongue is swollen and heavy. Patient is afebrile but her pulse rate is 130 and her blood pressure is 227/166. Patient states she sees doctors at [facility] but her medicines have not been right in a while and she just does not take them as appropriate. She is also a current pack-a-day smoker. Patient's white count is elevated at 17.5, sodium low at 134, potassium low at 3.2, creatinine elevated at 2.25, blood sugars elevated at 186. CT scan of the neck shows soft tissue density in the left peritonsillar fossa hypopharynx region with narrowing of the hypopharynx and oropharyngeal airway deviation to the right. This is either mass or abscess. There are multiple nodes present in the anterior and posterior carotid triangle extending from the skull base to the supraclavicular region bilaterally left greater than the right. Upon exam patient is in mild distress due to pain and difficulty swallowing. She has obvious swelling of her left tonsillar area and neck with enlarged lymph nodes. Dr. Hester from ENT has already evaluated the patient and recommended antibiotics and steroids [id number]. After discussion with Dr. Atkins the ED physician and Dr. Villavicencio the admitting hospitalist, it was agreed patient would be admitted for further evaluation and treatment. Once patient's medicines have been annotated in [employer] they will be reconciled. Patient is a full code. Home Medications Medication Instructions Recorded Confirmed Type Aspirin Chew Tab 81 mg PO DAILY 01/28/17 01/31/17 History Doxazosin Mesylate 4 mg PO DAILY 01/28/17 01/28/17 History Metoprolol Succinate Xl [Toprol Xl] 100 mg PO DAILY 01/28/17 01/28/17 History Valsartan 160 mg PO DAILY 01/28/17 01/31/17 History hydroCHLOROthiazide 12.5 mg PO DAILY 01/28/17 01/31/17 History [Hydrochlorothiazide] Allergies Allergy/AdvReac Type Severity Reaction Status Date / Time No Known Allergies Allergy Verified 01/31/17 21:46 Medical,Surgical,& Family Hx - Medical History Cardio: History of: Hypertension Neurology: History of: Cerebrovascular Accident Endocrine: History of: Diabetes Mellitus (NIDDM) (borderline diet controlled), Dyslipidemia - Surgical History Neurologic Surgeries: Patient denies: Neurologic Surgery Abdominal Surgeries: Surgical HX of: Abdominal Surgery, Hernia Repair Reproductive Surgeries: Surgical HX of;: Hysterectomy - Family History Family History: Reports;: Family Diabetes, Family Hypertension - Social History Smoking Status: Current every day smoker Have you smoked in the last 12 months: Yes Time spent discussing smoking cessation with patient: 3 to 10 minutes Frequency of Alcohol Use: None Type of Drug Use: None Marital Status: Single Lives With:: Alone Functional capacity: independent ambulation 12 point system: reviewed and no additional remarkable complaints except as stated Exam - Constitutional Vitals: Period Temp Pulse Resp BP Sys/Huffman Pulse Ox Last 24 Hr 97.6 F-97.6 F 130-130 25-25 227-227/166-166 100 Exam: Constitutional System: Mild distress. No tremulousness. Head: Normocephalic, atraumatic. Ears, Nose and Throat System: No evidence of Otitis or Mastoiditis. No epistaxis or discharge Eyes System: Pupils equal, round, and reactive. Extraocular muscles intact. Neck: Supple, with cervical and supraclavicular adenopathy, No jugular venous distention. Firm mass noted over left tonsillar region with tenderness no thyromegaly or prior surgery apparent. Respiratory System: Chest clear to auscultation. Cardiovascular System: Heart with regular but tachycardic rate and rhythm. No murmur. GI System: Abdomen soft, nontender. Normo active bowel sounds present. Well- healed midline incision Musculoskeletal System: limbs with no pedal edema. Full distal pulses. Neurological System: No discernable sensory deficit. No aphasia Psychiatric System: Conversation is rational - Expanded ENT Exam Mouth exam: Present: moist, muffled voice Teeth exam: Present: other (Upper and lower dentures) Throat exam: Present: L peritonsillar mass, post pharyngeal edema, tonsillar exudate (Necrotic left tonsil with gag reflex limiting oropharyngeal exam no distinct fluctuance of soft palate were able to palpate) Results - Labs CBC & BMP: 05/14/17 15:36 05/14/17 15:36 Lab Results: I have reviewed the past 24 hour labs - Diagnostic Findings Procedure: Chest x-ray: report reviewed by me (Cardiomegaly without decompensation), CT: report reviewed by me (CT scan of the neck shows mixed soft tissue density in the left peritonsillar fossa hypopharynx region with narrowing of the hypopharynx and oropharyngeal area deviation to the right study is limited without use of IV contrast. This could be an abscess or underlying mass. Left maxillary sinusitis with subtotal fluid opacification persist. Multiple nodes present in the anterior posterior carotid triangle extending from the skull base to the supraclavicular region with bilateral great left greater than the right) Sepsis - Sepsis Classification of Sepsis: Severe Sepsis Possible / Suspected infection from: Tonsillar abscess - Physical Exam Respiratory exam: clear to auscultation bilaterally Capillary Refill: Less Than 3 Seconds Peripheral pulses: Radial (L): 5+, Radial (R): 5+, Dorsalis Pedis (L) PM: 3+/4+ , Dorsalis Pedis (R) PM: 3+/4+, Posterior Tibialis (L): 3+/4+, Posterior Tibialis (R): 3+/4+ Cardiovascular exam: tachycardia Skin exam: normal color
[2017-05-14] MEDS ORDERED: SODIUM CHLORIDE 0.9% 2,450 ML IV ONE (17:53)
[2017-05-14] MEDS: CLINDAMYCIN INJ 600 MG in PREMIX 1 EACH IV SCH (18:23)
[2017-05-14] MEDS: methylPREDNISolone SOD SUC 125 MG/2 ML VIAL IV SCH (18:23)
[2017-05-14] MEDS ORDERED: SODIUM CHLORIDE 0.9% 1,000 ML IV ONE (18:34)
[2017-05-14] MEDS: INSULIN LISPRO 100 UNIT/ML SUBCUT SCH (18:41)
[2017-05-14] MEDS: LABETALOL 20 MG/4 ML SYRINGE IV PRN ×3 (19:05→21:18)
[2017-05-14] MEDS: HYDROmorphone 2 MG/1 ML VIAL IV PRN ×3 (19:13→23:41)
[2017-05-14] MEDS: SODIUM CHLORIDE 0.9% 1,000 ML IV SCH (19:59)
[2017-05-14] MEDS: POTASSIUM CHLORIDE RIDER 10 MEQ in PREMIX 1 EACH IV PRN (20:33)
[2017-05-14] MEDS: niCARdipine INJ 25 MG in SODIUM CHLORIDE 0.9% 240 ML IV SCH (21:37)
[2017-05-15] MEDS: POTASSIUM CHLORIDE RIDER 10 MEQ in PREMIX 1 EACH IV PRN ×3 (00:48→04:09)
[2017-05-15] MEDS: methylPREDNISolone SOD SUC 125 MG/2 ML VIAL IV SCH ×5 (00:48→23:39)
[2017-05-15] MEDS: CLINDAMYCIN INJ 600 MG in PREMIX 1 EACH IV SCH ×5 (00:49→23:39)
[2017-05-15] MEDS: SODIUM CHLORIDE 0.9% 1,000 ML IV SCH ×5 (01:28→23:39)
[2017-05-15] MEDS: HYDROmorphone 2 MG/1 ML VIAL IV PRN ×4 (01:53→21:26)
[2017-05-15] MEDS: niCARdipine INJ 25 MG in SODIUM CHLORIDE 0.9% 240 ML IV SCH (02:17)
[2017-05-15] MEDS: LABETALOL 20 MG/4 ML SYRINGE IV PRN (02:49)
[2017-05-15] MEDS: niCARdipine INJ 50 MG in SODIUM CHLORIDE 0.9% 480 ML IV SCH ×2 (03:25→06:59)
[2017-05-15 04:53] LABS: Basophils # 0.1 10*3/uL (0.0-0.2); Basophils % 0.4 % (0.0-0.8); Hemoglobin 11.2 GM/DL (12.0-16.0); Immature Granulocytes % 1.9 %; Immature Granulocytes Absolute 0.37 #; Lymphocytes # 0.5 10*3/uL (1.4-4.0); Lymphocytes % 2.3 % (21.3-54.2); Mean Corpuscular HGB Conc 36.1 GM/DL (32-36); Mean Corpuscular Hemoglobin 35 PG (27-34); Mean Corpuscular Volume 95.7 FL (87-102); Mean Platelet Volume 11.1 FL (9.6-12.0); Monocytes # 0.9 10*3/uL (0.11-0.8); Monocytes % 4.3 % (1.7-12.7); Neutrophils % 91.1 % (38.7-73.9); Platelet Count 197 T/CUMM (130-400); Red Blood Count 3.24 MC/CUMM (3.8-5.5); White Blood Count 19.8 T/CUMM (4-12)
[2017-05-15 05:39] LABS: Band Neutrophils 5 % (0-10); Hypochromasia 2+; Lymphocytes 1 % (20-55); Metamyelocytes 1 %; Nucleated Red Blood Cells 1 (0-5); Platelet Estimate Normal; Segmented Neutrophils 91 % (50-85); Total Cells Counted 100
[2017-05-15 05:41] LABS: Magnesium 1.5 MG/DL (1.8-2.4); Osmolality,Calculated 294.8 MOS/KG (273-304); Potassium 4.2 MMOL/L (3.5-5.1); Risk Ratio 7.19; VLDL CHOLESTEROL 46.4 MG/DL
--- NOTE | 2017-05-15 08:10 | Progress Note ---
Assessment and Plan - Time spent with patient Time spent with patient: Less than 30 minutes (1) Peritonsillar cellulitis Status: Acute Assessment and plan: I recommend she be admitted for antibiotic treatment additionally I would recommend if her sugars can be controlled we also use steroids to help decrease the swelling. I will plan on taking her to surgery on Monday for a quinsy tonsillectomy/possible tonsil biopsy/flexible laryngoscopy/oropharyngeal exam under anesthesia. I discussed this with the patient she is willing to proceed with this care plan. I talked with the emergency room physician who will contact the hospitalist for admission because of her multiple comorbidities. I will consult this patient and see her tomorrow. 05/15/2017 We will take her back for an otolaryngologic exam under anesthesia tomorrow additionally we will perform a tonsil biopsy possibly, possible [employer] incision and drainage, flexible laryngoscopy, possible tonsillectomy. N.p.o. at midnight and hold anticoagulants at midnight. Current Visit: Yes (2) Necrotic tonsils Status: Acute Current Visit: Yes (3) Cervical lymphadenopathy Status: Acute Current Visit: Yes (4) Uncontrolled diabetes mellitus Status: Chronic Current Visit: No (5) Elevated troponin Status: Acute Current Visit: No Family Medicine PN Sub Interval history: Oral pharyngeal mass after 1 day of IV antibiotics and steroids patient notes improved swallowing/dysphasia, also less pressure and improved gag reflex. We will proceed with a diabetic diet and continue with our plan for exam under anesthesia with biopsy and possible incision and drainage. Exam (Progress Note) - Constitutional Vitals: Period Temp Pulse Resp BP Sys/Huffman Pulse Ox Last 24 Hr 97.6 F-98.7 F 76-130 12-25 123-227/57-166 93-100 General appearance: no acute distress, over weight - Head Head exam: Present: normal inspection, normocephalic - Eye Eye exam: Present: EOMI Pupils: Present: MARCELO - ENT ENT exam: Present: normal external ear exam - Expanded ENT Exam ENT Exam Mouth exam: Present: moist Throat exam: Present: L peritonsillar mass, post pharyngeal edema - Neck Neck exam: Present: lymphadenopathy - Respiratory Respiratory exam: Present: other (No shortness of breath or difficulty breathing ) - Cardiovascular Cardiovascular exam: Present: regular rate and rhythm - GI/Abdominal GI/Abdominal exam: Present: soft - Extremities Exam Extremities exam: Present: normal inspection, normal capillary refill - Neurological Exam Neurological exam: Present: alert, oriented X3, CN II-XII intact - Psychiatric Psychiatric exam: Present: normal affect, normal mood - Skin Skin exam: Present: normal color, warm Results - Labs CBC & BMP: 05/15/17 03:58 05/15/17 03:58 Lab Results: I have reviewed the past 24 hour labs - Diagnostic Findings Procedure: CT: pending, image reviewed by me, report reviewed by me (I agree with anesthesias findings I am not sure this is consistent with an abscess clinically) Quality Measures - VTE Contraindication to Pharmacological VTE Prophylaxis: High Risk of Bleeding
[2017-05-15] MEDS: PANTOPRAZOLE 40 MG VIAL IV SCH (08:38)
[2017-05-15] MEDS: INSULIN LISPRO 100 UNIT/ML SUBCUT SCH ×4 (08:38→21:24)
[2017-05-15] MEDS: METOPROLOL SUCCINATE XL 100 MG TABLET PO SCH (08:39)
[2017-05-15] MEDS: VALSARTAN 160 MG TABLET PO SCH (08:39)
[2017-05-15] MEDS: DOXAZOSIN 4 MG TABLET PO SCH (08:39)
[2017-05-15] MEDS: hydroCHLOROthiazide 12.5 MG CAPSULE PO SCH (08:39)
[2017-05-15] MEDS ORDERED: hydrALAZINE 20 MG/1 ML VIAL IV PRN (09:02)
--- NOTE | 2017-05-15 09:06 | Hospitalist Progress Note ---
Assessment and Plan (1) Uncontrolled diabetes mellitus Status: Chronic Assessment and plan: 1)DM- continue with SSI and diabetic diet. On no meds at home per her home list. reassess what she will need at discharge when off solumedrol. HGBA1C is 7.5. 2)HTN- not controlled as outpatient because she doesn't take her meds. It has come down nicely with Cardene. Add norvasc to her home meds and use hydralazine IV prn. Stop cardene this morning. 3)tonsillar necrosis- to OR tomorrow morning. swallowing betted after 24hours of antibiotics and steroids. Current Visit: No (2) Tobacco abuse Status: Chronic Current Visit: No (3) Uncontrolled hypertension Status: Chronic Current Visit: No (4) Peritonsillar cellulitis Status: Acute Current Visit: Yes (5) Necrotic tonsils Status: Acute Current Visit: Yes (6) Acute kidney injury Status: Acute Current Visit: Yes Hospitalist: Subjective Interval history: Ms Abernathy is feeling ok and her BP has come to normal range with the cardene infusion. She has not been taking her meds regularly at home. Her accuchecks are up a bit but controlled with SSI. She is swallowing better this morning and will go to OR tomorrow morning for her tonsillar mass/infection/necrosis. Exam - Constitutional Vitals: Period Temp Pulse Resp BP Sys/Huffman Pulse Ox Last 24 Hr 97.6 F-98.7 F 76-130 12-25 123-227/57-166 93-100 General appearance: normal weight, no acute distress - Eye Eye exam: Present: EOMI. Absent: scleral icterus - Expanded ENT Exam Mouth exam: Present: moist, muffled voice Teeth exam: Present: other (Upper and lower dentures) Throat exam: Present: L peritonsillar mass, post pharyngeal edema, tonsillar exudate (Necrotic left tonsil with gag reflex limiting oropharyngeal exam no distinct fluctuance of soft palate were able to palpate) - Respiratory Respiratory exam: Present: clear to auscultation bilaterally - Cardiovascular Cardiovascular exam: Present: regular rate and rhythm - GI/Abdominal GI/Abdominal exam: Present: normal bowel sounds, soft. Absent: tenderness - Extremities Exam Extremities exam: Absent: edema - Neurological Exam Neurological exam: Present: alert, oriented X3 - Skin Skin exam: Present: warm, dry Results - Labs CBC & BMP: 05/15/17 03:58 05/15/17 03:58 Lab Results: I have reviewed the past 24 hour labs Quality Measures - VTE Contraindication to Pharmacological VTE Prophylaxis: High Risk of Bleeding
[2017-05-15] MEDS: amLODIPine 10 MG TABLET PO SCH (09:42)
[2017-05-15] MEDS ORDERED: INSULIN LISPRO 100 UNIT/ML SUBCUT SCH ×2 (11:36→16:30)
[2017-05-15 14:41] LABS: Apearance,Urine CLEAR (Clear); Bilirubin,Urine Negative (Negative); Blood, Urine Moderate mg/dL (Negative); Glucose,Urine (UA) 150 mg/dL (Negative); Ketones,Urine Negative (Negative); Nitrite,Urine Negative (Negative); Protein,Urine 100 MG/DL; RBC,Urine 17 /HPF (0-4); Urine Color Yellow (Yellow); Urine Specific Gravity 1.008 (1.001-1.035); Urine Urobilinogen < 2.0 EU/DL (0.2-1.0); WBC,Urine 5 /HPF (0-6)
[2017-05-15] MEDS ORDERED: CLORAZEPATE 3.75 MG TABLET PO PRN (22:49)
[2017-05-16] MEDS: SODIUM CHLORIDE 0.9% 1,000 ML IV SCH (05:44)
[2017-05-16] MEDS: CLINDAMYCIN INJ 600 MG in PREMIX 1 EACH IV SCH ×2 (06:09→12:45)
[2017-05-16] MEDS: methylPREDNISolone SOD SUC 125 MG/2 ML VIAL IV SCH ×2 (06:09→12:45)
[2017-05-16] MEDS: HYDROmorphone 2 MG/1 ML VIAL IV PRN (06:10)
--- NOTE | 2017-05-16 06:31 | EKG Report ---
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
[2017-05-16] MEDS ORDERED: FAMOTIDINE 20 MG TABLET PO ONE (08:00)
[2017-05-16] MEDS: VALSARTAN 160 MG TABLET PO SCH (08:20)
[2017-05-16] MEDS: PANTOPRAZOLE 40 MG VIAL IV SCH (08:20)
[2017-05-16] MEDS: INSULIN LISPRO 100 UNIT/ML SUBCUT SCH ×2 (08:20→12:45)
[2017-05-16] MEDS: DOXAZOSIN 4 MG TABLET PO SCH (08:20)
[2017-05-16] MEDS: amLODIPine 10 MG TABLET PO SCH (08:20)
[2017-05-16] MEDS: METOPROLOL SUCCINATE XL 100 MG TABLET PO SCH (08:21)
[2017-05-16] MEDS: hydroCHLOROthiazide 12.5 MG CAPSULE PO SCH (08:21)
[2017-05-16] MEDS ORDERED: ASPIRIN CHEW 81 MG TABLET PO SCH (09:00)
[2017-05-16] MEDS ORDERED: LACTATED RINGERS 1,000 ML IV SCH (09:30)
--- NOTE | 2017-05-16 11:48 | Operative Note ---
Date of procedure: 05/16/17 Pre-op diagnosis: Acute left tonsillitis with left peritonsillar swelling and tonsillar necro Post-op diagnosis: same Procedure: 1. left tonsil bx 2. otolaryngologic exam under anestheisa 3. Direct laryngoscopy After appropriate informed consent was signed and placed in chart patient was taken back to the operative theater where timeout was performed to verify the correct patient with correct procedure. The patient was transferred onto the operative table in supine position where anesthesia performed general endotracheal anesthesia. A Michael Kei mouthgag was inserted and extended and suspended from the Waterman stand. The left tonsil was palpated and visualized a left superior pole necrotic ulcer was visualized but had decreased in size from initial evaluation. Additionally the peritonsillar swelling had decreased or resolved. Digital manipulation revealed no evidence of a peritonsillar abscess. Curved hemostats were used to biopsy the ulcerated necrotic superior pole of the left tonsil. This was forwarded to pathology. Because of the superior nature of her larynx the mouth gag was able to be advanced and superiorly retract the epiglottis and visualize her larynx and hypopharynx and the extension of the swelling in the left tonsillar inflammation did not extend to the inferior pole of the tonsillar down into the hypopharynx and there was no evidence of laryngeal or hypopharyngeal edema or swelling. All instrumentation was removed and the patient was allowed to emerge from anesthesia uneventfully Anesthesia: ARUNAA Surgeon / Physician: Tomasz Hester Estimated blood loss: minimal Specimens: other (Left tonsil biopsy) Condition: stable Disposition: ICU Results - Labs CBC & BMP: 05/15/17 03:58 05/15/17 03:58 Discharge Plan - Discharge Medications No Action Valsartan 160 mg PO DAILY Metoprolol Succinate Xl [Toprol Xl] 100 mg PO DAILY Aspirin Chew Tab 81 mg PO DAILY Doxazosin Mesylate 4 mg PO DAILY hydroCHLOROthiazide [Hydrochlorothiazide] 12.5 mg PO DAILY - Follow Up or Referral - Forms/Instructions
--- NOTE | 2017-05-16 12:34 | Anesthesia Post-Op ---
Anesthesia Post OP - Post Ansesthetic Evaluation Patient seen in post op: Yes Resp: within normal limits CV: within normal limits Mental: within normal limits Temp: within normal limits [id number]: within normal limits Nausea and Vomiting: within normal limits Pain: within normal limits
[2017-05-16 12:42] VITALS: BP 137/96
[2017-05-16] MEDS ORDERED: fentaNYL 100 MCG/2 ML VIAL ONE (12:46)
[2017-05-16] MEDS ORDERED: SEVOFLURANE 1 UNIT/15 MINUTE INH ONE (12:46)
[2017-05-16] MEDS ORDERED: PROPOFOL 200 MG/20 ML VIAL IV ONE (12:46)
[2017-05-16] MEDS ORDERED: MIDAZOLAM 2 MG/2 ML VIAL ONE (12:46)
[2017-05-16] MEDS ORDERED: SUCCINYLCHOLINE 200 MG/10 ML VIAL ONE (12:47)
[2017-05-16] MEDS ORDERED: ROCURONIUM 100 MG/10 ML VIAL IV ONE (12:47)
[2017-05-16] MEDS ORDERED: DEXAMETHASONE 10 MG/1 ML VIAL ONE (12:47)
[2017-05-16] MEDS ORDERED: ONDANSETRON 4 MG/2 ML VIAL ONE (12:47)
--- NOTE | 2017-05-16 13:41 | Discharge Summary ---
Hospital Course - Hospital Course Hospital Course: Ms. Abernathy is a 51 year old -[place] female with history of diabetes and hypertension presenting to the ED with a 5 day history of painful swallowing and swelling of her right tonsil. CT scan of the neck shows soft tissue density in the left peritonsillar fossa hypopharynx region with narrowing of the hypopharynx and oropharyngeal airway deviation to the right. Dr. Hester from ENT was consulted. She was started on clindamycin and steroids. Patient was taken to the OR today by Dr. Hester which shows acute left tonsillitis with peritonsillar swelling and necrosis. A biopsy was taken by . all did not believe it was cancerous in nature. He recommended 10 more days of clindamycin with acidophilus daily to prevent C. difficile. Her white count on admission was 17.5 and her blood cultures were negative no growth. Dr. Hester will follow up with her in 2 weeks. She has diabetes with hemoglobin A1c of 7.5 and does not currently take any medications. Her blood sugars were elevated in the hospital due to steroids which we have discontinued. Her blood pressure is very difficult to control and is on multiple medications all of which we have refilled. We will get her an appointment with primary care physician next door. Patient also has stage III renal failure with a creatinine of 2. She has never seen a renal doctor before and we will given her an appointment with Dr. Barnard. Patient needs better control of her diabetes and hypertension and needs a PMD. Dr. Hood. - Time spent with patient Time with patient DS: Greater than 30 minutes (45 min) Discharge Plan - Discharge Data Disposition: Disch To Home/Self Care Condition at Discharge: Stable Discharge Diet: diabetic diet Activity: resume usual activities as tolerated Hygiene: no restrictions Weight Bearing at Discharge: full weight bearing - Discharge Medications New Atorvastatin [Lipitor] 20 mg PO BEDTIME #30 tablet Clindamycin HCl [Clindamycin Cap] 300 mg PO Q8HR #30 capsule Lactobacillus Acidophilus/Fos [Acidophilus Probiotic Tablet] 1 each PO DAILY #10 tablet Magnesium Oxide [Magnesium] 400 mg PO BID #14 capsule amLODIPine [Norvasc] 10 mg PO DAILY #30 tablet Continue Aspirin Chew Tab 81 mg PO DAILY Doxazosin Mesylate 4 mg PO DAILY #30 tablet Metoprolol Succinate Xl [Toprol Xl] 100 mg PO DAILY #30 tablet Valsartan 160 mg PO DAILY #30 tablet hydroCHLOROthiazide [Hydrochlorothiazide] 12.5 mg PO DAILY #30 tablet - Follow Up or Referral Follow Up: Tomasz Hester DO [Physician] - 2 Weeks (follow up with Dr Hester on May 31 @ 10 :30) Emigdio Barnard Jr., MD [Physician] - 2 Weeks Jessica Hood MD [Physician] - 2 Weeks - Forms/Instructions Exam - Constitutional Vitals: Period Temp Pulse Resp BP Sys/Huffman Pulse Ox Last 24 Hr 97.1 F-98.6 F 67-86 12-21 111-159/74-112 16-100 General appearance: normal weight, no acute distress - Respiratory Respiratory exam: Present: clear to auscultation bilaterally. Absent: rhonchi, wheezes - Cardiovascular Cardiovascular exam: Present: regular rate and rhythm. Absent: systolic murmur - GI/Abdominal GI/Abdominal exam: Present: normal bowel sounds, soft. Absent: tenderness - Neurological Exam Neurological exam: Present: alert, oriented X3 - Psychiatric Psychiatric exam: Present: normal affect, normal mood Discharge Results Procedures and tests throughout hospitalization: Pending Orders 05/14/17 15:48 Blood Culture Stat Labs on day of discharge: Labs from last 24 hours 05/16/17 05/16/17 05/15/17 12:40 07:46 20:52 POC Glucose 170 H 246 H 227 H Urine Color Urine Appearance Urine pH Ur Specific Mcallister Urine Protein Urine Glucose (UA) Urine Ketones Urine Blood Urine Nitrate Urine Bilirubin Urine Urobilinogen Urine Leukocytes Urine RBC Urine WBC Ur Culture Indicated? 05/15/17 05/15/17 16:34 13:40 POC Glucose 306 H Urine Color Yellow Urine Appearance Clear Urine pH 5.0 Ur Specific Mcallister 1.008 Urine Protein 100 Urine Glucose (UA) 150 Urine Ketones Negative Urine Blood Moderate Urine Nitrate Negative Urine Bilirubin Negative Urine Urobilinogen < 2.0 H Urine Leukocytes Negative Urine RBC 17 Urine WBC 5 Ur Culture Indicated? Not indicated Preliminary micro results at discharge 05/14/17 15:48 Blood Culture - Preliminary Blood No growth at 1 day 05/14/17 15:48 Blood Culture - Preliminary Blood No growth at 1 day DS: Provider Date of admission: 05/14/17 17:18 Primary care physician: . No PCP Attending physician on admission: Orville Salmeron MD Consults: 05/14/17 17:26 Consult to Physician [CONS] Routine Comment: tonsillar mass Consulting Provider: Tomasz Hester When should Consulting Provider be notified: Now Discharging clinician: Jerica Mensah MD
== END 2017-05-16 14:06 | disposition home or self-care (01) | DRG 133 ==
LOC: N.ED 15:10 → N.ICU 17:56 → SUATTDRO 17:56 → N.ICU 18:00
PROVIDERS: ADMIT Internal Medicine; ATTEND Internal Medicine

== ENCOUNTER 2017-08-31 15:18 | Inpatient (IN) ==
[2017-08-31] MEDS ORDERED: SODIUM CHLORIDE 0.9% 500 ML IV STA (16:24)
[2017-08-31 17:04] LABS: Basophils % 0.3 % (0.0-0.8); Eosinophils % 0.4 % (0.00-10.9); Hematocrit 34.9 VOL% (35.7-47.0); Hemoglobin 12.8 GM/DL (12.0-16.0); Immature Granulocytes % 0.4 %; Immature Granulocytes Absolute 0.03 #; Lymphocytes # 0.9 10*3/uL (1.4-4.0); Lymphocytes % 13.1 % (21.3-54.2); Mean Corpuscular HGB Conc 36.7 GM/DL (32-36); Mean Corpuscular Hemoglobin 36 PG (27-34); Mean Corpuscular Volume 98.3 FL (87-102); Mean Platelet Volume 11.5 FL (9.6-12.0); Monocytes # 0.4 10*3/uL (0.11-0.8); Monocytes % 5.9 % (1.7-12.7); Neutrophils # 5.7 10*3/uL (1.4-7.4); Neutrophils % 79.9 % (38.7-73.9); Platelet Count 144 T/CUMM (130-400); Red Blood Count 3.55 MC/CUMM (3.8-5.5); Red Cell Distribution Width 13.8 % (9.3-17.3); White Blood Count 7.2 T/CUMM (4-12)
[2017-08-31 17:22] LABS: Lactic Acid 1.8 MMOL/L (0.4-2.0)
[2017-08-31 17:25] LABS: Alanine Aminotransferase 44 U/L (13-56); Albumin 3.3 G/DL (3.4-5.0); Alkaline Phosphatase 120 U/L (45-117); Amylase 109 U/L (25-115); Aspartate Amino Transferase 91 U/L (0-37); Bilirubin,Total < 0.39 MG/DL (0.2-1.0); Blood Urea Nitrogen 60 MG/DL (7-18); Calcium 8.2 MG/DL (8.5-10.1); Glucose 241 MG/DL (74-106); Magnesium 1.2 MG/DL (1.8-2.4); Osmolality,Calculated 288.5 MOS/KG (273-304); Potassium 3.6 MMOL/L (3.5-5.1); Sodium 132 MMOL/L (136-145); Total Protein 7.8 G/DL (6.4-8.3)
[2017-08-31] MEDS ORDERED: MAGNESIUM SULF RIDER 2 GM in PREMIX 1 EACH IV STA (17:31)
[2017-08-31] MEDS ORDERED: ASPIRIN EC 325 MG TABLET PO STA (17:32)
[2017-08-31] MEDS ORDERED: ASPIRIN 325 MG TABLET ONE (18:27)
[2017-08-31] MEDS ORDERED: MAGNESIUM SULF RIDER 50 ML IV ONE (18:27)
[2017-08-31] MEDS ORDERED: METOPROLOL TARTRATE 5 MG/5 ML VIAL IV ONE (18:34)
[2017-08-31 18:37] LABS: Apearance,Urine CLOUDY (Clear); Bacteria,Urine Moderate /HPF (Few); Bilirubin,Urine Negative (Negative); Blood, Urine Small mg/dL (Negative); Glucose,Urine (UA) Negative (Negative); Hyaline Casts,Urine 5 /LPF (0-3); Ketones,Urine Negative (Negative); Mucus,Urine Occasional /LPF (Occasional); Nitrite,Urine Negative (Negative); Protein,Urine >=500 MG/DL; RBC,Urine 9 /HPF (0-4); Squamous Epithelial Cell,Urine Occasional /HPF (0-10); Urine Color Amber (Yellow); Urine Urobilinogen < 2.0 EU/DL (0.2-1.0); WBC,Urine 249 /HPF (0-6)
[2017-08-31] MEDS ORDERED: METOPROLOL TARTRATE 5 MG/5 ML VIAL IV STA (18:40)
[2017-08-31] MEDS ORDERED: ONDANSETRON 4 MG/2 ML VIAL IV PRN ×2 (18:45→20:23)
[2017-08-31] MEDS ORDERED: hydrALAZINE 20 MG/1 ML VIAL IV ONE (19:02)
[2017-08-31] MEDS ORDERED: cefTRIAXone 1,000 MG in SODIUM CHLORIDE 0.9% 100 ML IV ONE (19:02)
[2017-08-31] MEDS ORDERED: cefTRIAXone 1,000 MG VIAL ONE (19:07)
[2017-08-31] MEDS ORDERED: hydrALAZINE 20 MG/1 ML VIAL ONE (19:07)
[2017-08-31] MEDS ORDERED: cefTRIAXone 1,000 MG in SYRINGE 1 EACH IV SCH (20:00)
[2017-08-31] MEDS ORDERED: ZALEPLON 5 MG CAPSULE PO PRN (20:23)
[2017-08-31] MEDS ORDERED: ACETAMINOPHEN 325 MG TABLET PO PRN (20:23)
[2017-08-31] MEDS: SODIUM CHLORIDE 0.9% 1,000 ML IV SCH (22:16)
[2017-08-31] MEDS: ENOXAPARIN 30 MG/0.3 ML SYRINGE SUBCUT SCH (22:17)
[2017-08-31] MEDS: CARVEDILOL 6.25 MG TABLET PO SCH (23:04)
[2017-09-01 04:47] LABS: Basophils % 0.3 % (0.0-0.8); Eosinophils % 0.4 % (0.00-10.9); Hematocrit 32.4 VOL% (35.7-47.0); Hemoglobin 12.1 GM/DL (12.0-16.0); Immature Granulocytes % 0.3 %; Immature Granulocytes Absolute 0.02 #; Lymphocytes # 1.1 10*3/uL (1.4-4.0); Lymphocytes % 14.8 % (21.3-54.2); Mean Corpuscular HGB Conc 37.3 GM/DL (32-36); Mean Corpuscular Hemoglobin 36 PG (27-34); Mean Platelet Volume 12.2 FL (9.6-12.0); Monocytes # 0.7 10*3/uL (0.11-0.8); Monocytes % 8.8 % (1.7-12.7); Neutrophils # 5.7 10*3/uL (1.4-7.4); Neutrophils % 75.4 % (38.7-73.9); Platelet Count 136 T/CUMM (130-400); Red Blood Count 3.34 MC/CUMM (3.8-5.5); Red Cell Distribution Width 13.9 % (9.3-17.3); White Blood Count 7.6 T/CUMM (4-12)
[2017-09-01 05:22] LABS: Calcium 7.7 MG/DL (8.5-10.1); Magnesium 1.7 MG/DL (1.8-2.4); Osmolality,Calculated 293.1 MOS/KG (273-304); Potassium 3.5 MMOL/L (3.5-5.1)
[2017-09-01 05:23] LABS: Troponin I Only 1.5 NG/ML (0.00-0.045)
[2017-09-01 05:27] LABS: Calcium 7.6 MG/DL (8.5-10.1); Magnesium 1.7 MG/DL (1.8-2.4); Osmolality,Calculated 290.2 MOS/KG (273-304); Potassium 3.5 MMOL/L (3.5-5.1); Risk Ratio 4.52; Thyroid Stimulating Hormone 0.835 uIU/ml (0.358-3.74); VLDL CHOLESTEROL 69.4 MG/DL
[2017-09-01] MEDS: SODIUM CHLORIDE 0.9% 1,000 ML IV SCH ×2 (05:34→13:54)
[2017-09-01] MEDS: ASPIRIN CHEW 81 MG TABLET PO SCH (12:03)
[2017-09-01] MEDS: CARVEDILOL 6.25 MG TABLET PO SCH (12:03)
[2017-09-01] MEDS: DOXAZOSIN 4 MG TABLET PO SCH (12:03)
[2017-09-01] MEDS: amLODIPine 10 MG TABLET PO SCH (12:03)
[2017-09-01] MEDS: PANTOPRAZOLE 40 MG TABLET PO SCH (12:03)
[2017-09-01] MEDS: CARVEDILOL 12.5 MG TABLET PO SCH (17:50)
[2017-09-01] MEDS: ENOXAPARIN 30 MG/0.3 ML SYRINGE SUBCUT SCH (21:28)
[2017-09-02] MEDS: SODIUM CHLORIDE 0.9% 1,000 ML IV SCH ×4 (00:40→22:59)
[2017-09-02 06:19] LABS: Basophils % 0.3 % (0.0-0.8); Eosinophils # 0.1 10*3/uL (0.0-0.87); Eosinophils % 0.8 % (0.00-10.9); Hematocrit 31.4 VOL% (35.7-47.0); Hemoglobin 11.4 GM/DL (12.0-16.0); Immature Granulocytes % 0.3 %; Immature Granulocytes Absolute 0.02 #; Lymphocytes % 17.1 % (21.3-54.2); Mean Corpuscular HGB Conc 36.3 GM/DL (32-36); Mean Corpuscular Hemoglobin 36 PG (27-34); Mean Corpuscular Volume 98.7 FL (87-102); Monocytes # 0.6 10*3/uL (0.11-0.8); Neutrophils # 4.3 10*3/uL (1.4-7.4); Neutrophils % 71.5 % (38.7-73.9); Platelet Count 135 T/CUMM (130-400); Red Blood Count 3.18 MC/CUMM (3.8-5.5); Red Cell Distribution Width 13.8 % (9.3-17.3); White Blood Count 6.1 T/CUMM (4-12)
[2017-09-02 06:54] LABS: Albumin 2.8 G/DL (3.4-5.0); Bilirubin,Total 0.6 MG/DL (0.2-1.0); Calcium 7.5 MG/DL (8.5-10.1); Osmolality,Calculated 296.5 MOS/KG (273-304); Potassium 3.4 MMOL/L (3.5-5.1); Total Protein 6.6 G/DL (6.4-8.3)
[2017-09-02] MEDS: amLODIPine 10 MG TABLET PO SCH (08:46)
[2017-09-02] MEDS: CARVEDILOL 12.5 MG TABLET PO SCH (08:46)
[2017-09-02] MEDS: ASPIRIN CHEW 81 MG TABLET PO SCH (08:46)
[2017-09-02] MEDS: PANTOPRAZOLE 40 MG TABLET PO SCH (08:46)
[2017-09-02] MEDS: DOXAZOSIN 4 MG TABLET PO SCH (08:46)
[2017-09-02] MEDS: ATORVASTATIN 40 MG TABLET PO SCH (13:52)
[2017-09-02] MEDS: POTASSIUM CHLORIDE 20 MEQ TABLET PO SCH ×3 (13:52→21:47)
[2017-09-02] MEDS: MAGNESIUM OXIDE 400 MG TABLET PO SCH ×2 (13:52→21:47)
[2017-09-02] MEDS: cefTRIAXone 1,000 MG in SYRINGE 1 EACH IV SCH (14:51)
[2017-09-02] MEDS: CARVEDILOL 25 MG TABLET PO SCH (17:32)
[2017-09-02] MEDS: INSULIN LISPRO 100 UNIT/ML SUBCUT SCH (17:33)
[2017-09-02] MEDS: NITROGLYCERIN 2% OINT 1 INCH/GM PACK TOP SCH (17:35)
[2017-09-02] MEDS ORDERED: INSULIN GLARGINE 100 UNIT/ML SUBCUT SCH (21:00)
[2017-09-02] MEDS ORDERED: LOPERAMIDE 0.2 MG/ML 30 ML/BOTTLE PO ONE (21:07)
[2017-09-02] MEDS: ENOXAPARIN 30 MG/0.3 ML SYRINGE SUBCUT SCH (21:47)
[2017-09-03] MEDS: NITROGLYCERIN 2% OINT 1 INCH/GM PACK TOP SCH ×4 (01:20→18:03)
[2017-09-03] MEDS: SODIUM CHLORIDE 0.9% 1,000 ML IV SCH ×2 (05:09→21:23)
[2017-09-03 06:31] LABS: Basophils % 0.4 % (0.0-0.8); Eosinophils % 0.7 % (0.00-10.9); Hematocrit 30.3 VOL% (35.7-47.0); Immature Granulocytes % 0.6 %; Immature Granulocytes Absolute 0.03 #; Lymphocytes # 1.1 10*3/uL (1.4-4.0); Mean Corpuscular HGB Conc 36.3 GM/DL (32-36); Mean Corpuscular Hemoglobin 36 PG (27-34); Mean Platelet Volume 12.2 FL (9.6-12.0); Monocytes # 0.6 10*3/uL (0.11-0.8); Monocytes % 11.6 % (1.7-12.7); Neutrophils # 3.6 10*3/uL (1.4-7.4); Neutrophils % 66.7 % (38.7-73.9); Platelet Count 152 T/CUMM (130-400); Red Blood Count 3.06 MC/CUMM (3.8-5.5); Red Cell Distribution Width 13.8 % (9.3-17.3); White Blood Count 5.5 T/CUMM (4-12)
[2017-09-03 07:12] LABS: Albumin 2.9 G/DL (3.4-5.0); Bilirubin,Total 0.8 MG/DL (0.2-1.0); Calcium 7.6 MG/DL (8.5-10.1); Osmolality,Calculated 294.3 MOS/KG (273-304); Potassium 3.9 MMOL/L (3.5-5.1); Total Protein 6.4 G/DL (6.4-8.3)
[2017-09-03] MEDS: INSULIN LISPRO 100 UNIT/ML SUBCUT SCH ×3 (08:32→17:50)
[2017-09-03] MEDS: MAGNESIUM OXIDE 400 MG TABLET PO SCH ×2 (08:33→21:23)
[2017-09-03] MEDS: CARVEDILOL 25 MG TABLET PO SCH ×2 (08:33→17:50)
[2017-09-03] MEDS: ATORVASTATIN 40 MG TABLET PO SCH (08:33)
[2017-09-03] MEDS: DOXAZOSIN 4 MG TABLET PO SCH (08:33)
[2017-09-03] MEDS: PANTOPRAZOLE 40 MG TABLET PO SCH (08:33)
[2017-09-03] MEDS: ASPIRIN CHEW 81 MG TABLET PO SCH (08:33)
[2017-09-03] MEDS ORDERED: MAGNESIUM SULF RIDER 2 GM in PREMIX 1 EACH IV PRN (13:11)
[2017-09-03] MEDS ORDERED: POTASSIUM CHLORIDE RIDER 10 MEQ in PREMIX 1 EACH IV PRN (13:11)
[2017-09-03] MEDS: cefTRIAXone 1,000 MG in SYRINGE 1 EACH IV SCH (13:27)
[2017-09-03] MEDS ORDERED: INSULIN GLARGINE 100 UNIT/ML SUBCUT SCH (13:51)
[2017-09-03] MEDS ORDERED: ENOXAPARIN 40 MG/0.4 ML SYRINGE SUBCUT SCH (21:00)
[2017-09-04] MEDS: NITROGLYCERIN 2% OINT 1 INCH/GM PACK TOP SCH ×3 (00:40→13:33)
[2017-09-04 04:54] LABS: Basophils % 0.6 % (0.0-0.8); Eosinophils # 0.1 10*3/uL (0.0-0.87); Eosinophils % 0.9 % (0.00-10.9); Hematocrit 31.4 VOL% (35.7-47.0); Hemoglobin 11.2 GM/DL (12.0-16.0); Immature Granulocytes % 0.6 %; Immature Granulocytes Absolute 0.04 #; Lymphocytes # 1.4 10*3/uL (1.4-4.0); Lymphocytes % 20.7 % (21.3-54.2); Mean Corpuscular HGB Conc 35.7 GM/DL (32-36); Mean Corpuscular Hemoglobin 36 PG (27-34); Mean Corpuscular Volume 100.3 FL (87-102); Mean Platelet Volume 11.5 FL (9.6-12.0); Monocytes # 0.8 10*3/uL (0.11-0.8); Monocytes % 12.7 % (1.7-12.7); Neutrophils # 4.3 10*3/uL (1.4-7.4); Neutrophils % 64.5 % (38.7-73.9); Platelet Count 185 T/CUMM (130-400); Red Blood Count 3.13 MC/CUMM (3.8-5.5); Red Cell Distribution Width 13.6 % (9.3-17.3); White Blood Count 6.6 T/CUMM (4-12)
[2017-09-04] MEDS: SODIUM CHLORIDE 0.9% 1,000 ML IV SCH ×2 (05:20→13:33)
[2017-09-04 05:27] LABS: Calcium 7.9 MG/DL (8.5-10.1); Magnesium 1.2 MG/DL (1.8-2.4); Osmolality,Calculated 297.7 MOS/KG (273-304); Potassium 4.2 MMOL/L (3.5-5.1)
[2017-09-04] MEDS ORDERED: DIAZEPAM 5 MG TABLET PO ONE (06:00)
[2017-09-04] MEDS ORDERED: diphenhydrAMINE CAP 25 MG CAPSULE PO ONE (06:00)
[2017-09-04] MEDS ORDERED: HEPARIN/NACL 0.9% 2 UNITS/ML 1,000 ML IV ONE ×2 (07:28→07:29)
[2017-09-04] MEDS ORDERED: LIDOCAINE 1% 20 ML VIAL ONE (07:29)
[2017-09-04] MEDS: CARVEDILOL 25 MG TABLET PO SCH (07:55)
[2017-09-04] MEDS: ASPIRIN CHEW 81 MG TABLET PO SCH ×2 (07:56→09:50)
[2017-09-04] MEDS: INSULIN LISPRO 100 UNIT/ML SUBCUT SCH (07:56)
[2017-09-04] MEDS: ATORVASTATIN 40 MG TABLET PO SCH ×2 (07:56→09:50)
[2017-09-04] MEDS: MAGNESIUM OXIDE 400 MG TABLET PO SCH ×2 (07:57→09:51)
[2017-09-04] MEDS: DOXAZOSIN 4 MG TABLET PO SCH ×2 (07:57→09:50)
[2017-09-04] MEDS: PANTOPRAZOLE 40 MG TABLET PO SCH ×2 (07:58→09:51)
[2017-09-04] MEDS ORDERED: MIDAZOLAM 2 MG/2 ML VIAL ONE (08:45)
[2017-09-04] MEDS ORDERED: HYDROmorphone 2 MG/1 ML VIAL ONE (08:45)
[2017-09-04] MEDS ORDERED: NITROGLYCERIN DRIP 50 MG/250 ML BOTTLE IV ONE (08:50)
[2017-09-04] MEDS ORDERED: VERAPAMIL 5 MG/2 ML VIAL ONE (08:51)
[2017-09-04] MEDS ORDERED: ENOXAPARIN 60 MG/0.6 ML SYRINGE ONE (08:57)
[2017-09-04] MEDS ORDERED: MAGNESIUM SULF RIDER 2 GM in PREMIX 1 EACH IV ONE (09:21)
[2017-09-04] MEDS ORDERED: MAGNESIUM SULF RIDER 4 GM in PREMIX 1 EACH IV ONE (09:45)
[2017-09-04 12:21] VITALS: BP 141/96
== END 2017-09-04 15:13 | disposition home or self-care (01) | DRG 280 ==
LOC: N.ED 15:18 → SUATTDRO 17:50 → N.EDINP 17:50 → N.TELEN 18:52
PROVIDERS: ADMIT Internal Medicine; ATTEND Internal Medicine

== ENCOUNTER 2018-11-29 23:30 | Inpatient (IN) ==
[2018-11-30] MEDS ORDERED: SODIUM CHLORIDE 0.9% 1,000 ML IV STA (00:01)
[2018-11-30] MEDS ORDERED: DIPH/TET/ACEL PERT BOOSTER VACCINE 0.5 ML VIAL IM ONE (00:01)
[2018-11-30] MEDS ORDERED: hydrALAZINE 20 MG/1 ML VIAL IV STA (00:05)
[2018-11-30 01:04] LABS: INR 0.9; Partial Thromboplastin Time 25.1 SECS (0-40)
[2018-11-30 01:09] LABS: Alanine Aminotransferase 19 U/L (13-56); Albumin 3.2 G/DL (3.4-5.0); Alkaline Phosphatase 125 U/L (45-117); Aspartate Amino Transferase 34 U/L (0-37); Bilirubin,Total < 0.39 MG/DL (0.2-1.0); Blood Urea Nitrogen 75 MG/DL (7-18); Calcium 7.6 MG/DL (8.5-10.1); Glucose 133 MG/DL (74-106); Osmolality,Calculated 296.8 MOS/KG (273-304); Potassium 3.6 MMOL/L (3.5-5.1); Sodium 137 MMOL/L (136-145); Total Protein 7.9 G/DL (6.4-8.3)
[2018-11-30 01:31] LABS: Barbiturates Screen,Urine Negative (Negative); Benzodiazepines Screen,Urine Negative (Negative); Cannabinoid Screen,Urine Negative (Negative); Opiate Screen,Urine Negative (Negative); Phencyclidine Screen,Urine Negative (Negative)
[2018-11-30 01:36] LABS: Basophils % 0.5 % (0.0-0.8); Eosinophils % 0.7 % (0.00-10.9); Hematocrit 27.8 VOL% (35.7-47.0); Hemoglobin 9.3 GM/DL (12.0-16.0); Immature Granulocytes % 0.5 %; Immature Granulocytes Absolute 0.02 #; Lymphocytes # 0.9 10*3/uL (1.4-4.0); Lymphocytes % 20.3 % (21.3-54.2); Mean Corpuscular HGB Conc 33.5 GM/DL (32-36); Mean Corpuscular Hemoglobin 34 PG (27-34); Mean Corpuscular Volume 101.1 FL (87-102); Mean Platelet Volume 11.5 FL (9.6-12.0); Monocytes # 0.4 10*3/uL (0.11-0.8); Monocytes % 8.2 % (1.7-12.7); Neutrophils # 3.1 10*3/uL (1.4-7.4); Neutrophils % 69.8 % (38.7-73.9); Platelet Count 152 T/CUMM (130-400); Red Blood Count 2.75 MC/CUMM (3.8-5.5); White Blood Count 4.4 T/CUMM (4-12)
[2018-11-30] MEDS ORDERED: METHOCARBAMOL 500 MG TABLET PO PRN (02:55)
[2018-11-30] MEDS ORDERED: DICYCLOMINE 10 MG CAPSULE PO PRN (02:55)
[2018-11-30] MEDS ORDERED: GLUCAGON 1 MG VIAL IM PRN (02:55)
[2018-11-30] MEDS ORDERED: HydrOXYzine PAMOATE 25 MG CAPSULE PO PRN (02:55)
[2018-11-30] MEDS ORDERED: DEXTROSE 50% 25 GM/50 ML SYRINGE IV PRN (02:55)
[2018-11-30] MEDS ORDERED: LORazepam 2 MG/1 ML VIAL IV PRN (02:55)
[2018-11-30] MEDS ORDERED: ONDANSETRON 4 MG/2 ML VIAL IV PRN (02:55)
[2018-11-30] MEDS ORDERED: THIAMINE INJ 100 MG, FOLIC ACID INJ 1 MG, MULTIVITAMIN INJ 10 ML in SODIUM CHLORIDE 0.9... IV ONE (03:30)
[2018-11-30] MEDS: ENOXAPARIN 30 MG/0.3 ML SYRINGE SUBCUT SCH ×2 (04:15→04:57)
[2018-11-30] MEDS: chlordiazePOXIDE 25 MG CAPSULE PO SCH ×5 (04:15→21:27)
[2018-11-30] MEDS: ACETAMINOPHEN 325 MG TABLET PO PRN (04:35)
[2018-11-30 07:56] LABS: Alanine Aminotransferase 17 U/L (13-56); Albumin 2.9 G/DL (3.4-5.0); Alkaline Phosphatase 114 U/L (45-117); Aspartate Amino Transferase 30 U/L (0-37); Bilirubin,Total < 0.39 MG/DL (0.2-1.0); Blood Urea Nitrogen 75 MG/DL (7-18); Calcium 7.2 MG/DL (8.5-10.1); Glucose 97 MG/DL (74-106); Osmolality,Calculated 298.5 MOS/KG (273-304); Potassium 3.7 MMOL/L (3.5-5.1); Sodium 139 MMOL/L (136-145)
[2018-11-30] MEDS: PANTOPRAZOLE 40 MG TABLET PO SCH (08:37)
[2018-11-30] MEDS: INSULIN REGULAR 100 UNIT/ML SUBCUT SCH ×4 (08:37→21:28)
[2018-11-30] MEDS: SODIUM BICARB INJ 50 MEQ in SODIUM CHLORIDE 0.45% 1,000 ML IV SCH ×3 (08:37→20:32)
[2018-11-30] MEDS: CARVEDILOL 25 MG TABLET PO SCH ×2 (08:37→16:43)
[2018-11-30] MEDS: ASPIRIN CHEW 81 MG TABLET PO SCH (08:37)
[2018-11-30 17:18] LABS: Apearance,Urine Slightly Hazy (Clear); Bacteria,Urine Occasional /HPF (Few); Bilirubin,Urine Negative (Negative); Blood, Urine Small mg/dL (Negative); Glucose,Urine (UA) Negative (Negative); Ketones,Urine Negative (Negative); Mucus,Urine Occasional /LPF (Occasional); Nitrite,Urine Negative (Negative); Protein,Urine >=500 MG/DL; RBC,Urine 8 /HPF (0-4); Squamous Epithelial Cell,Urine Occasional /HPF (0-10); Urine Color Yellow (Yellow); Urine Specific Gravity 1.008 (1.001-1.035); Urine Urobilinogen < 2.0 EU/DL (0.2-1.0); WBC,Urine 3 /HPF (0-6)
[2018-11-30 18:11] LABS: Protein/Creatinine Ratio,Urine 2.2 RATIO
[2018-11-30 18:42] LABS: Microalbum/Creat Ratio Random 1504.4 RATIO (0-30)
[2018-12-01] MEDS: chlordiazePOXIDE 25 MG CAPSULE PO SCH ×3 (04:39→21:43)
[2018-12-01] MEDS: ENOXAPARIN 30 MG/0.3 ML SYRINGE SUBCUT SCH (04:43)
[2018-12-01] MEDS: SODIUM BICARB INJ 50 MEQ in SODIUM CHLORIDE 0.45% 1,000 ML IV SCH ×2 (04:44→12:52)
[2018-12-01 06:04] LABS: Calcium 7.5 MG/DL (8.5-10.1); Osmolality,Calculated 301.3 MOS/KG (273-304); Potassium 3.6 MMOL/L (3.5-5.1)
[2018-12-01] MEDS: INSULIN REGULAR 100 UNIT/ML SUBCUT SCH ×4 (07:21→21:43)
[2018-12-01] MEDS: CARVEDILOL 25 MG TABLET PO SCH ×2 (08:23→17:27)
[2018-12-01] MEDS: PANTOPRAZOLE 40 MG TABLET PO SCH (08:23)
[2018-12-01] MEDS: ASPIRIN CHEW 81 MG TABLET PO SCH (08:23)
[2018-12-02] MEDS: ENOXAPARIN 30 MG/0.3 ML SYRINGE SUBCUT SCH (03:34)
[2018-12-02] MEDS: chlordiazePOXIDE 25 MG CAPSULE PO SCH ×3 (03:48→21:07)
[2018-12-02] MEDS: hydrALAZINE 20 MG/1 ML VIAL IV PRN (03:48)
[2018-12-02 06:24] LABS: Calcium 7.9 MG/DL (8.5-10.1); Osmolality,Calculated 306.3 MOS/KG (273-304); Potassium 3.7 MMOL/L (3.5-5.1)
[2018-12-02] MEDS: INSULIN REGULAR 100 UNIT/ML SUBCUT SCH ×4 (08:21→21:07)
[2018-12-02] MEDS: PANTOPRAZOLE 40 MG TABLET PO SCH (08:30)
[2018-12-02] MEDS: ASPIRIN CHEW 81 MG TABLET PO SCH (08:30)
[2018-12-02] MEDS: CARVEDILOL 25 MG TABLET PO SCH ×2 (08:30→16:51)
[2018-12-02] MEDS: NICOTINE 14 MG/24 HR PATCH TRANSDERM SCH (11:40)
[2018-12-03] MEDS: chlordiazePOXIDE 25 MG CAPSULE PO SCH ×2 (03:12→11:01)
[2018-12-03] MEDS: ENOXAPARIN 30 MG/0.3 ML SYRINGE SUBCUT SCH (03:12)
[2018-12-03 05:42] LABS: Calcium 8.1 MG/DL (8.5-10.1); Osmolality,Calculated 310.3 MOS/KG (273-304)
[2018-12-03] MEDS: INSULIN REGULAR 100 UNIT/ML SUBCUT SCH ×4 (07:31→22:31)
[2018-12-03] MEDS: hydrALAZINE 20 MG/1 ML VIAL IV PRN ×2 (08:09)
[2018-12-03] MEDS: PANTOPRAZOLE 40 MG TABLET PO SCH (08:10)
[2018-12-03] MEDS: CARVEDILOL 25 MG TABLET PO SCH ×2 (08:10→16:32)
[2018-12-03] MEDS: NICOTINE 14 MG/24 HR PATCH TRANSDERM SCH (08:10)
[2018-12-03] MEDS: ASPIRIN CHEW 81 MG TABLET PO SCH (08:10)
[2018-12-03] MEDS: SODIUM BICARBONATE 650 MG TABLET PO SCH ×2 (11:38→22:32)
[2018-12-04 05:54] LABS: Calcium 8.3 MG/DL (8.5-10.1); Osmolality,Calculated 308.3 MOS/KG (273-304); Potassium 4.1 MMOL/L (3.5-5.1)
[2018-12-04] MEDS: NICOTINE 14 MG/24 HR PATCH TRANSDERM SCH (08:58)
[2018-12-04] MEDS: CARVEDILOL 25 MG TABLET PO SCH ×2 (09:05→16:08)
[2018-12-04] MEDS: INSULIN REGULAR 100 UNIT/ML SUBCUT SCH ×4 (09:08→21:48)
[2018-12-04] MEDS ORDERED: ceFAZolin 1,000 MG in SYRINGE 1 EACH IV ONE (09:09)
[2018-12-04] MEDS: SODIUM BICARBONATE 650 MG TABLET PO SCH ×2 (09:10→20:03)
[2018-12-04] MEDS: PANTOPRAZOLE 40 MG TABLET PO SCH (09:10)
[2018-12-04] MEDS: ASPIRIN CHEW 81 MG TABLET PO SCH (09:10)
[2018-12-04] MEDS: ENOXAPARIN 30 MG/0.3 ML SYRINGE SUBCUT SCH (09:10)
[2018-12-04] MEDS ORDERED: LIDOCAINE 1% 20 ML VIAL ONE (10:36)
[2018-12-04] MEDS ORDERED: BUPIVACAINE 0.5% 50 ML VIAL ONE (10:36)
[2018-12-04] MEDS ORDERED: HEPARIN 5,000 UNIT/1 ML VIAL ONE (10:36)
[2018-12-04] MEDS ORDERED: fentaNYL 100 MCG/2 ML VIAL ONE (12:19)
[2018-12-04] MEDS ORDERED: ONDANSETRON 4 MG/2 ML VIAL ONE (12:19)
[2018-12-04] MEDS ORDERED: KETAMINE 500 MG/10 ML VIAL ONE (12:19)
[2018-12-04] MEDS ORDERED: MIDAZOLAM 2 MG/2 ML VIAL ONE (12:19)
[2018-12-04 15:38] LABS: Hepatitis A Ab IgM Quant 0.15 Index; Hepatitis A Ab IgM Result Negative (Negative); Hepatitis B Core IgM Quant 0.11 Index; Hepatitis B Core IgM Result Negative (Negative); Hepatitis B Surface Ag Quant < 0.10 Index; Hepatitis B Surface Ag Result Negative (Negative); Hepatitis C Virus Ab Quant 0.09 Index; Hepatitis C Virus Ab Result Negative (Negative)
[2018-12-04] MEDS ORDERED: HEPARIN 10,000 UNIT/10 ML VIAL IV PRN (16:39)
[2018-12-04] MEDS: ACETAMINOPHEN 325 MG TABLET PO PRN (20:01)
[2018-12-05 05:34] LABS: Calcium 8.2 MG/DL (8.5-10.1); Osmolality,Calculated 302.3 MOS/KG (273-304); Potassium 4.7 MMOL/L (3.5-5.1)
[2018-12-05] MEDS: INSULIN REGULAR 100 UNIT/ML SUBCUT SCH ×4 (08:22→21:24)
[2018-12-05] MEDS: SODIUM BICARBONATE 650 MG TABLET PO SCH ×2 (08:23→21:23)
[2018-12-05] MEDS: CARVEDILOL 25 MG TABLET PO SCH ×2 (08:23→16:51)
[2018-12-05] MEDS: ASPIRIN CHEW 81 MG TABLET PO SCH (08:23)
[2018-12-05] MEDS: PANTOPRAZOLE 40 MG TABLET PO SCH (08:23)
[2018-12-05] MEDS: ENOXAPARIN 30 MG/0.3 ML SYRINGE SUBCUT SCH (08:24)
[2018-12-05] MEDS: NICOTINE 14 MG/24 HR PATCH TRANSDERM SCH (08:24)
[2018-12-06] MEDS: CARVEDILOL 25 MG TABLET PO SCH ×2 (07:50→17:02)
[2018-12-06] MEDS: INSULIN REGULAR 100 UNIT/ML SUBCUT SCH ×4 (07:50→21:06)
[2018-12-06] MEDS: ENOXAPARIN 30 MG/0.3 ML SYRINGE SUBCUT SCH (08:01)
[2018-12-06] MEDS: NICOTINE 14 MG/24 HR PATCH TRANSDERM SCH (08:01)
[2018-12-06] MEDS: PANTOPRAZOLE 40 MG TABLET PO SCH (08:01)
[2018-12-06] MEDS: ASPIRIN CHEW 81 MG TABLET PO SCH (08:01)
[2018-12-06] MEDS: SODIUM BICARBONATE 650 MG TABLET PO SCH ×2 (08:02→20:46)
[2018-12-07 07:49] VITALS: BP 161/98
[2018-12-07] MEDS: SODIUM BICARBONATE 650 MG TABLET PO SCH (08:15)
[2018-12-07] MEDS: PANTOPRAZOLE 40 MG TABLET PO SCH (08:15)
[2018-12-07] MEDS: ASPIRIN CHEW 81 MG TABLET PO SCH (08:16)
[2018-12-07] MEDS: NICOTINE 14 MG/24 HR PATCH TRANSDERM SCH (08:16)
[2018-12-07] MEDS: CARVEDILOL 25 MG TABLET PO SCH (08:16)
[2018-12-07] MEDS: ENOXAPARIN 30 MG/0.3 ML SYRINGE SUBCUT SCH (08:17)
[2018-12-07] MEDS: INSULIN REGULAR 100 UNIT/ML SUBCUT SCH (08:17)
== END 2018-12-07 08:58 | disposition home health service (06) | DRG 683 ==
LOC: EDBD → EDUNIT# → N.ED 23:30 → SUATTDRO 11-30 02:55 → N.EDINP 11-30 02:55 → N.2E 11-30 03:45
PROVIDERS: ADMIT Internal Medicine; ATTEND Internal Medicine Nephrology

== ENCOUNTER 2021-01-04 01:13 | Inpatient (IN) ==
[2021-01-04] MEDS ORDERED: VECURONIUM 10 MG VIAL IV STA (01:24)
[2021-01-04] MEDS ORDERED: ETOMIDATE 20 MG/10 ML VIAL IV STA (01:24)
[2021-01-04] MEDS ORDERED: MORPHINE 4 MG/1 ML VIAL IV STA (01:24)
[2021-01-04] MEDS ORDERED: NITROGLYCERIN 2% OINT 1 INCH/GM PACK TOP ONE (01:27)
[2021-01-04] MEDS ORDERED: ONDANSETRON 4 MG/2 ML VIAL ONE (01:27)
[2021-01-04] MEDS ORDERED: ONDANSETRON 4 MG/2 ML VIAL IV STA (01:29)
[2021-01-04] MEDS ORDERED: methylPREDNISolone SOD SUC 125 MG/2 ML VIAL IV STA (01:30)
[2021-01-04] MEDS ORDERED: NITROGLYCERIN 2% OINT 1 INCH/GM PACK TOP STA (01:30)
[2021-01-04] MEDS ORDERED: FUROSEMIDE 100 MG/10 ML VIAL IV STA (01:30)
[2021-01-04] MEDS ORDERED: niCARdipine 25 MG/10 ML VIAL IV ONE (01:37)
[2021-01-04 01:40] LABS: Basophils % 0.3 % (0.0-0.8); Eosinophils # 0.1 10*3/uL (0.0-0.87); Eosinophils % 0.6 % (0.00-10.9); Hematocrit 26.9 VOL% (35.7-47.0); Hemoglobin 8.6 GM/DL (12.0-16.0); Immature Granulocytes % 0.5 %; Immature Granulocytes Absolute 0.06 #; Lymphocytes # 3.4 10*3/uL (1.4-4.0); Lymphocytes % 27.8 % (21.3-54.2); Mean Corpuscular Volume 112.1 FL (87-102); Mean Platelet Volume 9.7 FL (9.6-12.0); NRBC # 0.05 10*3/uL; Neutrophils % 65.8 % (38.7-73.9); Platelet Count 308 T/CUMM (130-400); Red Cell Distribution Width 19.9 % (9.3-17.3); White Blood Count 12.3 T/CUMM (4-12)
[2021-01-04] MEDS: niCARdipine INJ 25 MG in SODIUM CHLORIDE 0.9% 240 ML IV PRN ×2 (01:49→06:52)
[2021-01-04 01:51] LABS: INR 1.1; PT Patient Result 11.4 SECS (9.8-11.9)
[2021-01-04 01:53] LABS: Alanine Aminotransferase < 6 U/L (13-56); Albumin 3.4 G/DL (3.4-5.0); Alkaline Phosphatase 198 U/L (45-117); Aspartate Amino Transferase 12 U/L (0-37); Blood Urea Nitrogen 13 MG/DL (7-18); Calcium 9.6 MG/DL (8.5-10.1); Carbon Dioxide 29 MMOL/L (21-32); Estimated Glom Filtration Rate 8 ML/MIN; Glucose 236 MG/DL (74-106); Osmolality,Calculated 269.7 MOS/KG (273-304); Sodium 131 MMOL/L (136-145); Total Protein 8.6 G/DL (6.4-8.2)
[2021-01-04 01:54] LABS: Troponin I 0.083 NG/ML (0.00-0.045)
[2021-01-04 01:56] LABS: Bacteria,Urine Occasional /HPF (Few); Bilirubin,Urine Negative (Negative); Blood, Urine Negative (Negative); Glucose,Urine (UA) 150 mg/dL (Negative); Ketones,Urine Negative (Negative); Mucus,Urine Occasional /LPF (Occasional); Nitrite,Urine Negative (Negative); Protein,Urine >=500 MG/DL; RBC,Urine 1 /HPF (0-4); Squamous Epithelial Cell,Urine Occasional /HPF (0-10); Urine Appearance CLEAR (Clear); Urine Color Straw (Yellow); Urine Specific Gravity 1.005 (1.001-1.035); Urine Urobilinogen < 2.0 EU/DL (0.2-1.0); WBC,Urine 1 /HPF (0-6)
[2021-01-04 02:04] LABS: Barbiturates Screen,Urine Negative (Negative); Benzodiazepines Screen,Urine Negative (Negative); Cannabinoid Screen,Urine Negative (Negative); Opiate Screen,Urine Negative (Negative); Phencyclidine Screen,Urine Negative (Negative)
[2021-01-04 02:12] LABS: ABG Base Excess 2.3 MMOL/L (-2.5-2.5); ABG HCO3 28.7 MMOL/L (20-26); ABG Oxygen Saturation 99.4 % (95-100); ABG PCO2 55.1 MM HG (35-48); ABG PH 7.334 (7.35-7.45); ABG PO2 495.8 MM HG (80-95); ABG TCO2 30.4 MMOL/L (23-27)
[2021-01-04] MEDS ORDERED: GLUCAGON 1 MG VIAL IM PRN (02:56)
[2021-01-04] MEDS ORDERED: ALBUTEROL 2.5 MG/3 ML NEB RESP TX PRN (02:56)
[2021-01-04] MEDS ORDERED: NICOTINE 21 MG/24 HR PATCH TRANSDERM PRN (02:56)
[2021-01-04] MEDS ORDERED: MORPHINE 4 MG/1 ML VIAL IV PRN (02:56)
[2021-01-04] MEDS ORDERED: ONDANSETRON 4 MG/2 ML VIAL IV PRN (02:56)
[2021-01-04] MEDS ORDERED: ACETAMINOPHEN 325 MG TABLET PO PRN (02:56)
[2021-01-04] MEDS ORDERED: DEXTROSE 50% 25 GM/50 ML VIAL IV PRN (02:56)
[2021-01-04 05:35] LABS: ABG Base Excess 4.6 MMOL/L (-2.5-2.5); ABG HCO3 30.3 MMOL/L (20-26); ABG Oxygen Saturation 96.9 % (95-100); ABG PCO2 51.7 MM HG (35-48); ABG PH 7.386 (7.35-7.45); ABG PO2 102.8 MM HG (80-95); ABG TCO2 31.9 MMOL/L (23-27)
[2021-01-04] MEDS: INSULIN REGULAR 100 UNIT/ML SUBCUT SCH ×4 (06:06→23:51)
[2021-01-04] MEDS: ALBUTEROL/IPRATROPIUM 3 ML NEB RESP TX SCH ×3 (07:06→19:03)
[2021-01-04] MEDS ORDERED: niCARdipine INJ 50 MG in SODIUM CHLORIDE 0.9% 480 ML IV PRN (07:44)
[2021-01-04] MEDS ORDERED: FUROSEMIDE 40 MG/4 ML VIAL IV SCH (08:00)
[2021-01-04 08:49] LABS: Risk Ratio 2.98; VLDL CHOLESTEROL 50.8 MG/DL
[2021-01-04] MEDS: ASPIRIN CHEW 81 MG TABLET PO SCH (10:29)
[2021-01-04] MEDS: NIFEdipine 10 MG CAPSULE PO SCH ×3 (10:30→20:33)
[2021-01-04] MEDS: LOSARTAN 25 MG TABLET PO SCH (10:30)
[2021-01-04] MEDS: carvediloL 25 MG TABLET PO SCH ×2 (10:31→17:30)
[2021-01-04] MEDS ORDERED: HEPARIN 10,000 UNIT/10 ML VIAL IV SCH (15:00)
[2021-01-04] MEDS ORDERED: MIDAZOLAM 100 MG in SODIUM CHLORIDE 0.9% 80 ML IV PRN (20:26)
[2021-01-05] MEDS: ALBUTEROL/IPRATROPIUM 3 ML NEB RESP TX SCH ×4 (00:44→19:48)
[2021-01-05 03:59] LABS: Basophils % 0.3 % (0.0-0.8); Hematocrit 22.9 VOL% (35.7-47.0); Hemoglobin 7.8 GM/DL (12.0-16.0); Immature Granulocytes % 0.4 %; Immature Granulocytes Absolute 0.03 #; Lymphocytes # 0.5 10*3/uL (1.4-4.0); Lymphocytes % 7.5 % (21.3-54.2); Mean Corpuscular HGB Conc 34.1 GM/DL (32-36); Mean Corpuscular Volume 106.5 FL (87-102); Mean Platelet Volume 10.3 FL (9.6-12.0); Monocytes % 7.7 % (1.7-12.7); NRBC # 0.02 10*3/uL; Neutrophils % 84.1 % (38.7-73.9); Platelet Count 192 T/CUMM (130-400); Red Blood Count 2.15 MC/CUMM (3.8-5.5); Red Cell Distribution Width 19.9 % (9.3-17.3)
[2021-01-05 04:13] LABS: Osmolality,Calculated 264.5 MOS/KG (273-304); Potassium 3.8 MMOL/L (3.5-5.1)
[2021-01-05] MEDS: INSULIN REGULAR 100 UNIT/ML SUBCUT SCH ×5 (06:22→23:33)
[2021-01-05] MEDS: carvediloL 25 MG TABLET PO SCH ×2 (08:14→17:16)
[2021-01-05] MEDS: NIFEdipine 10 MG CAPSULE PO SCH (08:15)
[2021-01-05] MEDS: ASPIRIN CHEW 81 MG TABLET PO SCH (08:15)
[2021-01-05] MEDS: LOSARTAN 25 MG TABLET PO SCH ×2 (08:15→20:09)
[2021-01-05] MEDS ORDERED: hydrALAZINE 25 MG TABLET PO SCH (09:00)
[2021-01-05 09:30] LABS: ABG Base Excess 5.1 MMOL/L (-2.5-2.5); ABG HCO3 29.1 MMOL/L (20-26); ABG Oxygen Saturation 98.6 % (95-100); ABG PCO2 41.4 MM HG (35-48); ABG PH 7.459 (7.35-7.45); ABG PO2 99.3 MM HG (80-95); ABG TCO2 27.3 MMOL/L (23-27); Allen Test Positive; Pt O2 Delivery Device Ventilator
[2021-01-05] MEDS ORDERED: LOSARTAN 25 MG TABLET PO ONE (12:15)
[2021-01-05] MEDS: cloNIDine 0.1 MG TABLET PO PRN (12:24)
[2021-01-05] MEDS ORDERED: hydrALAZINE 20 MG/1 ML VIAL IV ONE (13:32)
[2021-01-06] MEDS: ALBUTEROL/IPRATROPIUM 3 ML NEB RESP TX SCH ×4 (01:10→19:09)
[2021-01-06] MEDS: cloNIDine 0.1 MG TABLET PO PRN (02:04)
[2021-01-06 04:45] LABS: Basophils % 0.4 % (0.0-0.8); Eosinophils # 0.1 10*3/uL (0.0-0.87); Eosinophils % 0.7 % (0.00-10.9); Hematocrit 23.4 VOL% (35.7-47.0); Immature Granulocytes % 0.5 %; Immature Granulocytes Absolute 0.04 #; Lymphocytes # 0.7 10*3/uL (1.4-4.0); Lymphocytes % 9.6 % (21.3-54.2); Mean Corpuscular HGB Conc 34.2 GM/DL (32-36); Mean Corpuscular Volume 105.9 FL (87-102); Mean Platelet Volume 10.3 FL (9.6-12.0); Monocytes % 8.5 % (1.7-12.7); NRBC # 0.02 10*3/uL; Neutrophils % 80.3 % (38.7-73.9); Platelet Count 193 T/CUMM (130-400); Red Blood Count 2.21 MC/CUMM (3.8-5.5); Red Cell Distribution Width 20.1 % (9.3-17.3); White Blood Count 7.5 T/CUMM (4-12)
[2021-01-06 05:10] LABS: Osmolality,Calculated 272.4 MOS/KG (273-304); Potassium 3.8 MMOL/L (3.5-5.1)
[2021-01-06] MEDS: INSULIN REGULAR 100 UNIT/ML SUBCUT SCH ×3 (05:30→17:53)
[2021-01-06] MEDS: ASPIRIN CHEW 81 MG TABLET PO SCH (08:07)
[2021-01-06] MEDS: LOSARTAN 25 MG TABLET PO SCH ×2 (08:07→21:08)
[2021-01-06] MEDS: carvediloL 25 MG TABLET PO SCH ×2 (08:07→16:29)
[2021-01-06] MEDS: cloNIDine 0.1 MG TABLET PO SCH ×2 (10:14→21:07)
[2021-01-06] MEDS ORDERED: LOSARTAN 25 MG TABLET PO ONE (10:57)
[2021-01-06] MEDS ORDERED: LOSARTAN 50 MG TABLET PO SCH (21:00)
[2021-01-07] MEDS: ALBUTEROL/IPRATROPIUM 3 ML NEB RESP TX SCH ×3 (00:14→13:05)
[2021-01-07] MEDS: INSULIN REGULAR 100 UNIT/ML SUBCUT SCH ×2 (00:39→06:33)
[2021-01-07] MEDS ORDERED: PHENOL 1.4% THROAT SPRAY 177 ML BOTTLE PO PRN (01:19)
[2021-01-07 05:19] LABS: Basophils % 0.4 % (0.0-0.8); Eosinophils # 0.1 10*3/uL (0.0-0.87); Eosinophils % 0.8 % (0.00-10.9); Hematocrit 23.3 VOL% (35.7-47.0); Hemoglobin 7.7 GM/DL (12.0-16.0); Immature Granulocytes % 1.1 %; Immature Granulocytes Absolute 0.09 #; Lymphocytes # 1.1 10*3/uL (1.4-4.0); Lymphocytes % 12.9 % (21.3-54.2); Mean Corpuscular Volume 108.9 FL (87-102); Mean Platelet Volume 10.6 FL (9.6-12.0); Monocytes % 9.3 % (1.7-12.7); NRBC # 0.05 10*3/uL; Neutrophils % 75.5 % (38.7-73.9); Platelet Count 199 T/CUMM (130-400); Red Blood Count 2.14 MC/CUMM (3.8-5.5); White Blood Count 8.3 T/CUMM (4-12)
[2021-01-07 05:32] LABS: Osmolality,Calculated 277.1 MOS/KG (273-304); Potassium 3.6 MMOL/L (3.5-5.1)
[2021-01-07] MEDS: carvediloL 25 MG TABLET PO SCH (08:35)
[2021-01-07] MEDS: LOSARTAN 25 MG TABLET PO SCH (08:35)
[2021-01-07] MEDS: cloNIDine 0.1 MG TABLET PO SCH (08:35)
[2021-01-07] MEDS: ASPIRIN CHEW 81 MG TABLET PO SCH (08:35)
[2021-01-07] MEDS ORDERED: INSULIN REGULAR 100 UNIT/ML SUBCUT SCH (11:30)
[2021-01-07 11:41] VITALS: BP 155/97
== END 2021-01-07 14:46 | disposition home or self-care (01) | DRG 291 ==
LOC: EDBD → EDUNIT# → N.ED 01:13 → SUATTDRO 02:56 → N.EDINP 02:56 → N.ICU 03:31 → N.5E 01-06 14:03
PROVIDERS: ADMIT Internal Medicine; ATTEND Internal Medicine

== ENCOUNTER 2021-11-21 16:25 | Inpatient (IN) ==
[2021-11-21] MEDS ORDERED: SODIUM CHLORIDE 0.9% 500 ML IV STA (17:30)
[2021-11-21] MEDS ORDERED: ONDANSETRON 4 MG/2 ML VIAL IV STA (17:30)
[2021-11-21 18:54] LABS: Basophils % 0.1 % (0.0-0.8); Hematocrit 26.6 VOL% (35.7-47.0); Hemoglobin 8.9 GM/DL (12.0-16.0); Immature Granulocytes % 1.2 %; Lymphocytes # 0.5 10*3/uL (1.4-4.0); Lymphocytes % 5.4 % (21.3-54.2); Mean Corpuscular HGB Conc 33.5 GM/DL (32-36); Mean Corpuscular Volume 95.3 FL (87-102); Mean Platelet Volume 12.7 FL (9.6-12.0); Monocytes % 4.8 % (1.7-12.7); Neutrophils % 88.5 % (38.7-73.9); Platelet Count 125 T/CUMM (130-400); Red Blood Count 2.79 MC/CUMM (3.8-5.5); Red Cell Distribution Width 18.6 % (9.3-17.3); White Blood Count 8.7 T/CUMM (4-12)
[2021-11-21 19:20] LABS: Band Neutrophils 2 % (0-10); Lymphocytes 6 % (20-55); Segmented Neutrophils 87 % (50-85); Total Cells Counted 100
[2021-11-21 19:21] LABS: Albumin 1.8 G/DL (3.4-5.0); Anisocytosis Slight; Bilirubin,Total 1.6 MG/DL (0.20-1.00); Calcium 10.6 MG/DL (8.5-10.1); Hypochromia 1+; Osmolality,Calculated 282.4 MOS/KG (273-304); Platelet Estimate Adequate; Polychromasia 1+; Potassium 3.6 MMOL/L (3.5-5.1); Target Cells Few; Total Protein 6.1 G/DL (6.4-8.2)
[2021-11-21] MEDS ORDERED: methylPREDNISolone SOD SUC 125 MG/2 ML VIAL IV STA (19:36)
[2021-11-21] MEDS ORDERED: PIPERACILLIN/TAZOBACTAM 3,375 MG in SODIUM CHLORIDE 0.9% 100 ML IV STA (19:36)
[2021-11-21] MEDS ORDERED: ALBUTEROL/IPRATROPIUM 3 ML NEB RESP TX STA (19:36)
[2021-11-21] MEDS ORDERED: ONDANSETRON 4 MG/2 ML VIAL IV PRN (19:37)
[2021-11-21] MEDS ORDERED: ALBUTEROL/IPRATROPIUM 3 ML NEB RESP TX PRN (19:42)
[2021-11-21 20:41] LABS: INR 1.1
[2021-11-21] MEDS: DEXTROSE 5% 1,000 ML IV SCH (22:03)
[2021-11-21] MEDS: carvediloL 25 MG TABLET PO SCH (22:03)
[2021-11-22 04:02] LABS: Basophils % 0.1 % (0.0-0.8); Hematocrit 25.9 VOL% (35.7-47.0); Hemoglobin 8.5 GM/DL (12.0-16.0); Immature Granulocytes % 1.1 %; Immature Granulocytes Absolute 0.09 #; Lymphocytes # 0.4 10*3/uL (1.4-4.0); Lymphocytes % 4.1 % (21.3-54.2); Mean Corpuscular HGB Conc 32.8 GM/DL (32-36); Mean Corpuscular Volume 96.6 FL (87-102); Mean Platelet Volume 10.9 FL (9.6-12.0); Monocytes % 3.4 % (1.7-12.7); NRBC # 0.09 10*3/uL; Neutrophils % 91.3 % (38.7-73.9); Platelet Count 136 T/CUMM (130-400); Red Blood Count 2.68 MC/CUMM (3.8-5.5); Red Cell Distribution Width 18.5 % (9.3-17.3); White Blood Count 8.5 T/CUMM (4-12)
[2021-11-22 04:21] LABS: Band Neutrophils 5 % (0-10); Hypochromia 1+; Lymphocytes 1 % (20-55); Nucleated Red Blood Cells 1 (0-5); Segmented Neutrophils 92 % (50-85); Total Cells Counted 100
[2021-11-22 04:22] LABS: Microcytosis 1+; Platelet Estimate Adequate
[2021-11-22 04:25] LABS: Albumin 1.8 G/DL (3.4-5.0); Bilirubin,Total 1.4 MG/DL (0.20-1.00); Calcium 10.2 MG/DL (8.5-10.1); Potassium 3.2 MMOL/L (3.5-5.1)
[2021-11-22] MEDS: methylPREDNISolone SOD SUC 40 MG/1 ML VIAL IV SCH ×3 (05:07→21:09)
[2021-11-22] MEDS: ACETAMINOPHEN 325 MG TABLET PO PRN (06:23)
[2021-11-22] MEDS ORDERED: ASPIRIN EC 81 MG TABLET PO SCH (09:00)
[2021-11-22] MEDS: carvediloL 25 MG TABLET PO SCH ×2 (09:36→21:08)
[2021-11-22] MEDS: CLOPIDOGREL 75 MG TABLET PO SCH (09:36)
[2021-11-22] MEDS: DEXTROSE 5% 1,000 ML IV SCH ×2 (13:13→23:03)
[2021-11-22] MEDS: PANTOPRAZOLE 40 MG VIAL IV SCH (13:14)
[2021-11-22] MEDS ORDERED: POTASSIUM CHLORIDE 20 MEQ TABLET PO ONE (16:59)
[2021-11-22] MEDS: cefTRIAXone 1,000 MG in SODIUM CHLORIDE 0.9% 100 ML IV SCH (17:50)
[2021-11-22] MEDS: AZITHROMYCIN INJ 500 MG in SODIUM CHLORIDE 0.9% 250 ML IV SCH (18:35)
[2021-11-22] MEDS: ALBUTEROL/IPRATROPIUM 3 ML NEB RESP TX SCH (20:41)
[2021-11-22] MEDS: ALBUMIN 25% 25 GM/100 ML VIAL IV SCH (21:08)
[2021-11-22] MEDS ORDERED: POTASSIUM CHLORIDE 20 MEQ TABLET PO PRN (23:55)
[2021-11-22] MEDS ORDERED: GLUCAGON 1 MG VIAL IM PRN (23:56)
[2021-11-22] MEDS ORDERED: DEXTROSE 10% 250 ML BAG IV PRN (23:58)
[2021-11-23] MEDS: ALBUTEROL/IPRATROPIUM 3 ML NEB RESP TX SCH ×4 (00:20→19:30)
[2021-11-23] MEDS: ALBUMIN 25% 25 GM/100 ML VIAL IV SCH ×3 (04:14→20:47)
[2021-11-23 05:30] LABS: Basophils % 0.2 % (0.0-0.8); Hematocrit 26.9 VOL% (35.7-47.0); Hemoglobin 8.5 GM/DL (12.0-16.0); Immature Granulocytes Absolute 0.26 #; Lymphocytes # 0.3 10*3/uL (1.4-4.0); Lymphocytes % 3.6 % (21.3-54.2); Mean Corpuscular HGB Conc 31.6 GM/DL (32-36); Mean Platelet Volume 11.7 FL (9.6-12.0); Monocytes % 3.4 % (1.7-12.7); NRBC # 0.05 10*3/uL; Neutrophils % 89.8 % (38.7-73.9); Platelet Count 122 T/CUMM (130-400); Red Blood Count 2.69 MC/CUMM (3.8-5.5); Red Cell Distribution Width 18.6 % (9.3-17.3); White Blood Count 8.6 T/CUMM (4-12)
[2021-11-23 05:48] LABS: Hypochromia 1+; Lymphocytes 3 % (20-55); Microcytosis 1+; Platelet Estimate Normal; Segmented Neutrophils 91 % (50-85); Total Cells Counted 100
[2021-11-23] MEDS: methylPREDNISolone SOD SUC 40 MG/1 ML VIAL IV SCH ×3 (05:55→21:10)
[2021-11-23 07:56] LABS: Bilirubin,Total 1.1 MG/DL (0.20-1.00); Calcium 10.7 MG/DL (8.5-10.1); Osmolality,Calculated 291.9 MOS/KG (273-304); Potassium 3.8 MMOL/L (3.5-5.1); Total Protein 6.2 G/DL (6.4-8.2)
[2021-11-23] MEDS ORDERED: cloNIDine 0.1 MG TABLET PO SCH (09:00)
[2021-11-23] MEDS: ASPIRIN CHEW 81 MG TABLET PO SCH (09:18)
[2021-11-23] MEDS: BENZONATATE 100 MG CAPSULE PO SCH ×3 (09:18→20:47)
[2021-11-23] MEDS: THIAMINE 100 MG TABLET PO SCH (09:18)
[2021-11-23] MEDS: carvediloL 25 MG TABLET PO SCH ×2 (09:18→20:47)
[2021-11-23] MEDS: CLOPIDOGREL 75 MG TABLET PO SCH (09:19)
[2021-11-23] MEDS: NICOTINE 21 MG/24 HR PATCH TRANSDERM SCH (09:21)
[2021-11-23] MEDS: INSULIN GLARGINE 100 UNIT/ML SUBCUT SCH (09:24)
[2021-11-23] MEDS: INSULIN REGULAR 100 UNIT/ML SUBCUT SCH ×4 (09:25→20:47)
[2021-11-23] MEDS: PANTOPRAZOLE 40 MG VIAL IV SCH (09:26)
[2021-11-23] MEDS ORDERED: ALUMINUM/MAGNES/SIMETH MAX STR 30 ML UDCUP PO PRN (11:51)
[2021-11-23] MEDS: MORPHINE 4 MG/1 ML VIAL IV PRN (12:05)
[2021-11-23 17:48] LABS: % Iron Saturation 47.8 % (18-50)
[2021-11-23 18:57] LABS: Hepatitis B Core IgM Quant 0.15 Index; Hepatitis B Surface Ag Quant < 0.10 Index; Hepatitis B Surface Ag Result Non-Reactive (NonReactive); Hepatitis C Virus Ab Quant 0.09 Index; Hepatitis C Virus Ab Result Non-Reactive (NonReactive)
[2021-11-23] MEDS: cefTRIAXone 1,000 MG in SODIUM CHLORIDE 0.9% 100 ML IV SCH (19:59)
[2021-11-23] MEDS: ATORVASTATIN 10 MG TABLET PO SCH (20:46)
[2021-11-23] MEDS: AZITHROMYCIN INJ 500 MG in SODIUM CHLORIDE 0.9% 250 ML IV SCH (20:46)
[2021-11-24] MEDS: ALBUTEROL/IPRATROPIUM 3 ML NEB RESP TX SCH ×2 (00:21→18:45)
[2021-11-24] MEDS: ALBUMIN 25% 25 GM/100 ML VIAL IV SCH ×3 (04:24→22:41)
[2021-11-24 05:22] LABS: Basophils % 0.2 % (0.0-0.8); Hematocrit 26.5 VOL% (35.7-47.0); Hemoglobin 8.5 GM/DL (12.0-16.0); Immature Granulocytes % 5.2 %; Immature Granulocytes Absolute 0.53 #; Lymphocytes # 0.4 10*3/uL (1.4-4.0); Lymphocytes % 4.3 % (21.3-54.2); Mean Corpuscular HGB Conc 32.1 GM/DL (32-36); Mean Corpuscular Volume 97.1 FL (87-102); Mean Platelet Volume 11.1 FL (9.6-12.0); Monocytes % 3.5 % (1.7-12.7); NRBC # 0.06 10*3/uL; Neutrophils % 86.8 % (38.7-73.9); Platelet Count 115 T/CUMM (130-400); Red Blood Count 2.73 MC/CUMM (3.8-5.5); Red Cell Distribution Width 18.6 % (9.3-17.3); White Blood Count 10.3 T/CUMM (4-12)
[2021-11-24] MEDS: methylPREDNISolone SOD SUC 40 MG/1 ML VIAL IV SCH ×3 (05:31→21:50)
[2021-11-24 05:43] LABS: Albumin 2.9 G/DL (3.4-5.0); Bilirubin,Total 1.5 MG/DL (0.20-1.00); Calcium 11.5 MG/DL (8.5-10.1); Potassium 3.7 MMOL/L (3.5-5.1); Total Protein 7.5 G/DL (6.4-8.2)
[2021-11-24 06:24] LABS: Lymphocytes 4 % (20-55); Nucleated Red Blood Cells 1 (0-5); Segmented Neutrophils 91 % (50-85); Total Cells Counted 100
[2021-11-24 06:25] LABS: Hypochromia 1+; Microcytosis 1+
[2021-11-24] MEDS: INSULIN REGULAR 100 UNIT/ML SUBCUT SCH ×4 (08:51→22:41)
[2021-11-24] MEDS: PANTOPRAZOLE 40 MG VIAL IV SCH (09:03)
[2021-11-24] MEDS: ACETAMINOPHEN 325 MG TABLET PO PRN (09:04)
[2021-11-24] MEDS: ASPIRIN CHEW 81 MG TABLET PO SCH (09:05)
[2021-11-24] MEDS: BENZONATATE 100 MG CAPSULE PO SCH ×3 (09:05→21:41)
[2021-11-24] MEDS: carvediloL 25 MG TABLET PO SCH ×2 (09:05→21:42)
[2021-11-24] MEDS: THIAMINE 100 MG TABLET PO SCH (09:05)
[2021-11-24] MEDS: INSULIN GLARGINE 100 UNIT/ML SUBCUT SCH (09:07)
[2021-11-24] MEDS: NICOTINE 21 MG/24 HR PATCH TRANSDERM SCH (09:13)
[2021-11-24] MEDS: cefTRIAXone 1,000 MG in SODIUM CHLORIDE 0.9% 100 ML IV SCH (18:05)
[2021-11-24] MEDS: AZITHROMYCIN INJ 500 MG in SODIUM CHLORIDE 0.9% 250 ML IV SCH (18:44)
[2021-11-24] MEDS: ATORVASTATIN 10 MG TABLET PO SCH (21:45)
[2021-11-25] MEDS: ALBUTEROL/IPRATROPIUM 3 ML NEB RESP TX SCH ×4 (00:37→19:35)
[2021-11-25 04:17] LABS: Basophils % 0.3 % (0.0-0.8); Hematocrit 25.2 VOL% (35.7-47.0); Immature Granulocytes % 3.3 %; Immature Granulocytes Absolute 0.37 #; Lymphocytes # 0.4 10*3/uL (1.4-4.0); Lymphocytes % 3.3 % (21.3-54.2); Mean Corpuscular HGB Conc 31.7 GM/DL (32-36); Mean Corpuscular Volume 96.2 FL (87-102); Monocytes % 3.5 % (1.7-12.7); NRBC # 0.08 10*3/uL; Neutrophils % 89.6 % (38.7-73.9); Platelet Count 105 T/CUMM (130-400); Red Blood Count 2.62 MC/CUMM (3.8-5.5); Red Cell Distribution Width 18.9 % (9.3-17.3); White Blood Count 11.1 T/CUMM (4-12)
[2021-11-25] MEDS: ALBUMIN 25% 25 GM/100 ML VIAL IV SCH ×3 (04:30→21:30)
[2021-11-25 04:40] LABS: Albumin 2.8 G/DL (3.4-5.0); Bilirubin,Total 1.3 MG/DL (0.20-1.00); Calcium 11.6 MG/DL (8.5-10.1); Potassium 3.3 MMOL/L (3.5-5.1); Uric Acid 5.1 MG/DL (2.6-6.0)
[2021-11-25 04:45] LABS: Hypochromia 1+; Lymphocytes 5 % (20-55); Microcytosis 1+; Platelet Estimate Decreased; Segmented Neutrophils 93 % (50-85); Total Cells Counted 100
[2021-11-25] MEDS: methylPREDNISolone SOD SUC 40 MG/1 ML VIAL IV SCH ×3 (05:38→21:28)
[2021-11-25] MEDS: carvediloL 25 MG TABLET PO SCH ×2 (09:46→21:29)
[2021-11-25] MEDS: ASPIRIN CHEW 81 MG TABLET PO SCH (09:46)
[2021-11-25] MEDS: BENZONATATE 100 MG CAPSULE PO SCH ×3 (09:46→21:29)
[2021-11-25] MEDS: THIAMINE 100 MG TABLET PO SCH (09:46)
[2021-11-25] MEDS: NICOTINE 21 MG/24 HR PATCH TRANSDERM SCH (09:48)
[2021-11-25] MEDS: PANTOPRAZOLE 40 MG VIAL IV SCH (09:48)
[2021-11-25] MEDS: INSULIN GLARGINE 100 UNIT/ML SUBCUT SCH (09:48)
[2021-11-25] MEDS: INSULIN REGULAR 100 UNIT/ML SUBCUT SCH ×4 (09:48→21:30)
[2021-11-25] MEDS: cefTRIAXone 1,000 MG in SODIUM CHLORIDE 0.9% 100 ML IV SCH (17:52)
[2021-11-25] MEDS: AZITHROMYCIN INJ 500 MG in SODIUM CHLORIDE 0.9% 250 ML IV SCH (17:56)
[2021-11-26] MEDS: ALBUTEROL/IPRATROPIUM 3 ML NEB RESP TX SCH ×5 (00:10→19:52)
[2021-11-26] MEDS: ALBUMIN 25% 25 GM/100 ML VIAL IV SCH ×3 (04:39→20:51)
[2021-11-26 05:46] LABS: Albumin 2.9 G/DL (3.4-5.0); Bilirubin,Direct 1.14 MG/DL (0.0-0.20); Bilirubin,Indirect 0.5 MG/DL (0.0-1.0); Bilirubin,Total 1.6 MG/DL (0.20-1.00); Total Protein 6.7 G/DL (6.4-8.2)
[2021-11-26 06:06] LABS: AFP Tumor 4.3 NG/ML (0-8); Cancer Antigen 19-9 < 1.20 U/ML (0-35)
[2021-11-26] MEDS: methylPREDNISolone SOD SUC 40 MG/1 ML VIAL IV SCH ×3 (06:47→22:53)
[2021-11-26] MEDS: INSULIN REGULAR 100 UNIT/ML SUBCUT SCH ×4 (07:15→21:50)
[2021-11-26] MEDS: THIAMINE 100 MG TABLET PO SCH (08:25)
[2021-11-26] MEDS: ASPIRIN CHEW 81 MG TABLET PO SCH (08:25)
[2021-11-26] MEDS: BENZONATATE 100 MG CAPSULE PO SCH ×3 (08:25→20:53)
[2021-11-26] MEDS: carvediloL 25 MG TABLET PO SCH ×2 (08:25→20:53)
[2021-11-26] MEDS: PANTOPRAZOLE 40 MG VIAL IV SCH (08:27)
[2021-11-26] MEDS: NICOTINE 21 MG/24 HR PATCH TRANSDERM SCH (08:30)
[2021-11-26] MEDS ORDERED: LORazepam 2 MG/1 ML VIAL IV ONE (09:00)
[2021-11-26] MEDS: INSULIN GLARGINE 100 UNIT/ML SUBCUT SCH (09:09)
[2021-11-26 11:51] LABS: Mitochondrial Antibody (M2) <0.1 U
[2021-11-26] MEDS: cefTRIAXone 1,000 MG in SODIUM CHLORIDE 0.9% 100 ML IV SCH (19:23)
[2021-11-27] MEDS: ALBUTEROL/IPRATROPIUM 3 ML NEB RESP TX SCH ×4 (00:50→19:00)
[2021-11-27 05:04] LABS: Basophils % 0.3 % (0.0-0.8); Hematocrit 23.8 VOL% (35.7-47.0); Hemoglobin 7.7 GM/DL (12.0-16.0); Immature Granulocytes % 6.9 %; Immature Granulocytes Absolute 0.68 #; Lymphocytes # 0.3 10*3/uL (1.4-4.0); Lymphocytes % 3.5 % (21.3-54.2); Mean Corpuscular HGB Conc 32.4 GM/DL (32-36); Mean Platelet Volume 11.5 FL (9.6-12.0); Monocytes % 3.5 % (1.7-12.7); NRBC # 0.07 10*3/uL; Neutrophils % 85.8 % (38.7-73.9); Platelet Count 83 T/CUMM (130-400); Red Blood Count 2.48 MC/CUMM (3.8-5.5); Red Cell Distribution Width 18.8 % (9.3-17.3); White Blood Count 9.8 T/CUMM (4-12)
[2021-11-27 05:08] LABS: INR 1.1; PT Patient Result 12.3 SECS (10.5-12.0)
[2021-11-27 05:22] LABS: Albumin 3.1 G/DL (3.4-5.0); Calcium 12.4 MG/DL (8.5-10.1); Osmolality,Calculated 278.1 MOS/KG (273-304); Potassium 3.4 MMOL/L (3.5-5.1)
[2021-11-27 05:25] LABS: Hypochromia 1+; Lymphocytes 5 % (20-55); Nucleated Red Blood Cells 1 (0-5); Platelet Estimate Decreased; Segmented Neutrophils 90 % (50-85); Total Cells Counted 100
[2021-11-27] MEDS: ALBUMIN 25% 25 GM/100 ML VIAL IV SCH ×3 (05:54→22:45)
[2021-11-27] MEDS ORDERED: BISACODYL 10 MG SUPP RECTAL ONE (08:38)
[2021-11-27] MEDS ORDERED: BISACODYL 5 MG TABLET PO ONE (08:39)
[2021-11-27] MEDS: BENZONATATE 100 MG CAPSULE PO SCH ×3 (10:05→21:37)
[2021-11-27] MEDS: carvediloL 25 MG TABLET PO SCH ×2 (10:05→21:37)
[2021-11-27] MEDS: THIAMINE 100 MG TABLET PO SCH (10:05)
[2021-11-27] MEDS: ASPIRIN CHEW 81 MG TABLET PO SCH (10:05)
[2021-11-27] MEDS: PANTOPRAZOLE 40 MG VIAL IV SCH (10:06)
[2021-11-27] MEDS: INSULIN REGULAR 100 UNIT/ML SUBCUT SCH ×4 (10:06→21:37)
[2021-11-27] MEDS: NICOTINE 21 MG/24 HR PATCH TRANSDERM SCH (10:07)
[2021-11-27] MEDS: AZITHROMYCIN INJ 500 MG in SODIUM CHLORIDE 0.9% 250 ML IV SCH ×2 (10:18→22:07)
[2021-11-27] MEDS: methylPREDNISolone SOD SUC 40 MG/1 ML VIAL IV SCH ×3 (10:19→21:37)
[2021-11-27] MEDS ORDERED: SODIUM CHLORIDE 0.9% 1,000 ML IV PRN (10:40)
[2021-11-27] MEDS: POLYETHYLENE GLYCOL POWDER 17 GM PACK PO SCH ×2 (17:50→21:37)
[2021-11-27] MEDS: cefTRIAXone 1,000 MG in SODIUM CHLORIDE 0.9% 100 ML IV SCH (21:37)
[2021-11-28 00:09] LABS: Hematocrit 27.5 VOL% (35.7-47.0)
[2021-11-28] MEDS: ALBUTEROL/IPRATROPIUM 3 ML NEB RESP TX SCH ×4 (00:18→19:27)
[2021-11-28] MEDS: ALBUMIN 25% 25 GM/100 ML VIAL IV SCH ×3 (03:59→21:01)
[2021-11-28] MEDS: methylPREDNISolone SOD SUC 40 MG/1 ML VIAL IV SCH ×3 (05:37→21:00)
[2021-11-28 09:34] LABS: Albumin 3.4 G/DL (3.4-5.0); Bilirubin,Direct 1.94 MG/DL (0.0-0.20); Bilirubin,Indirect 0.6 MG/DL (0.0-1.0); Bilirubin,Total 2.5 MG/DL (0.20-1.00); Total Protein 7.2 G/DL (6.4-8.2)
[2021-11-28] MEDS: POLYETHYLENE GLYCOL POWDER 17 GM PACK PO SCH ×3 (10:23→21:00)
[2021-11-28] MEDS: INSULIN REGULAR 100 UNIT/ML SUBCUT SCH ×4 (10:24→21:01)
[2021-11-28] MEDS: THIAMINE 100 MG TABLET PO SCH (10:24)
[2021-11-28] MEDS: PANTOPRAZOLE 40 MG VIAL IV SCH (10:24)
[2021-11-28] MEDS: ASPIRIN CHEW 81 MG TABLET PO SCH (10:24)
[2021-11-28] MEDS: carvediloL 25 MG TABLET PO SCH ×2 (10:25→21:00)
[2021-11-28] MEDS: BENZONATATE 100 MG CAPSULE PO SCH ×3 (10:25→21:00)
[2021-11-28] MEDS: NICOTINE 21 MG/24 HR PATCH TRANSDERM SCH (10:26)
[2021-11-28 12:16] LABS: Antinuclear Ab, S 1.7 U
[2021-11-28] MEDS: ACETAMINOPHEN 325 MG TABLET PO PRN (13:11)
[2021-11-28] MEDS: cefTRIAXone 1,000 MG in SODIUM CHLORIDE 0.9% 100 ML IV SCH (18:53)
[2021-11-28] MEDS: AZITHROMYCIN INJ 500 MG in SODIUM CHLORIDE 0.9% 250 ML IV SCH (20:08)
[2021-11-28] MEDS ORDERED: ALBUTEROL/IPRATROPIUM 3 ML NEB RESP TX STA ×2 (22:54→23:28)
[2021-11-28] MEDS ORDERED: MORPHINE 4 MG/1 ML VIAL IV PRN ×2 (23:04→23:27)
[2021-11-28] MEDS: MORPHINE 4 MG/1 ML VIAL IV PRN (23:07)
[2021-11-28 23:44] LABS: Arterial Base Excess iSTAT -1 MMOL/L (-2.5-2.5); Arterial Bicarbonate iSTAT 24.5 MMOL/L (20-26); Arterial O2 Saturation iSTAT 95 % (95-100); Arterial PCO2 iSTAT 44 MM HG (35-48); Arterial PO2 iSTAT 78 MM HG (80-95); Arterial Total CO2 iSTAT 26 MMO/L (23-27); Arterial pH iSTAT 7.352 (7.35-7.45)
[2021-11-29] MEDS: ALBUTEROL/IPRATROPIUM 3 ML NEB RESP TX SCH ×4 (01:05→19:00)
[2021-11-29] MEDS: ALBUMIN 25% 25 GM/100 ML VIAL IV SCH ×3 (04:30→23:05)
[2021-11-29 05:44] LABS: Albumin 3.4 G/DL (3.4-5.0); Bilirubin,Direct 1.94 MG/DL (0.0-0.20); Bilirubin,Total 3.9 MG/DL (0.20-1.00); Total Protein 7.1 G/DL (6.4-8.2)
[2021-11-29] MEDS: methylPREDNISolone SOD SUC 40 MG/1 ML VIAL IV SCH ×3 (06:19→23:05)
[2021-11-29 07:28] LABS: Calcium 13.5 MG/DL (8.5-10.1)
[2021-11-29] MEDS: PANTOPRAZOLE 40 MG VIAL IV SCH (08:42)
[2021-11-29] MEDS: INSULIN REGULAR 100 UNIT/ML SUBCUT SCH ×4 (08:44→23:04)
[2021-11-29] MEDS: NICOTINE 21 MG/24 HR PATCH TRANSDERM SCH (08:44)
[2021-11-29 10:01] LABS: Anti-Nuclear Antibody Pattern Speckled
[2021-11-29] MEDS: THIAMINE 100 MG TABLET PO SCH (12:28)
[2021-11-29] MEDS: BENZONATATE 100 MG CAPSULE PO SCH ×3 (12:28→23:05)
[2021-11-29] MEDS: POLYETHYLENE GLYCOL POWDER 17 GM PACK PO SCH ×3 (12:29→23:07)
[2021-11-29] MEDS: carvediloL 25 MG TABLET PO SCH ×2 (12:29→23:05)
[2021-11-29] MEDS: ASPIRIN CHEW 81 MG TABLET PO SCH (12:29)
[2021-11-29 13:04] LABS: Basophils % 0.3 % (0.0-0.8); Hematocrit 27.5 VOL% (35.7-47.0); Hemoglobin 9.2 GM/DL (12.0-16.0); Immature Granulocytes Absolute 0.55 #; Lymphocytes # 0.3 10*3/uL (1.4-4.0); Lymphocytes % 3.1 % (21.3-54.2); Mean Corpuscular HGB Conc 33.5 GM/DL (32-36); Mean Platelet Volume 10.8 FL (9.6-12.0); Monocytes % 3.6 % (1.7-12.7); NRBC # 0.19 10*3/uL; Platelet Count 82 T/CUMM (130-400); Red Blood Count 2.99 MC/CUMM (3.8-5.5)
[2021-11-29 14:04] LABS: Lymphocytes 8 % (20-55); Nucleated Red Blood Cells 2 (0-5); Segmented Neutrophils 91 % (50-85); Total Cells Counted 100
[2021-11-29 14:05] LABS: Hypochromia Slight; Microcytosis Slight; Platelet Estimate Adequate; Target Cells 1+
[2021-11-29] MEDS ORDERED: KETAMINE 500 MG/10 ML VIAL ONE (14:26)
[2021-11-29] MEDS: SODIUM CHLORIDE 0.9% 1,000 ML IV SCH (14:44)
[2021-11-29 15:46] LABS: Alpha-1-Antitrypsin, Serum 213 mg/dL (100 - 190)
[2021-11-29] MEDS: FLUCONAZOLE INJ 200 MG/100 ML PREMIX IV SCH (17:54)
[2021-11-29] MEDS: cefTRIAXone 1,000 MG in SODIUM CHLORIDE 0.9% 100 ML IV SCH (19:39)
[2021-11-30] MEDS: ALBUTEROL/IPRATROPIUM 3 ML NEB RESP TX SCH ×4 (00:21→19:44)
[2021-11-30] MEDS: ALBUMIN 25% 25 GM/100 ML VIAL IV SCH ×2 (04:00→12:25)
[2021-11-30 05:02] LABS: Basophils % 0.2 % (0.0-0.8); Hematocrit 24.2 VOL% (35.7-47.0); Hemoglobin 7.9 GM/DL (12.0-16.0); Immature Granulocytes % 3.2 %; Immature Granulocytes Absolute 0.35 #; Lymphocytes # 0.3 10*3/uL (1.4-4.0); Lymphocytes % 3.1 % (21.3-54.2); Mean Corpuscular HGB Conc 32.6 GM/DL (32-36); Mean Corpuscular Volume 93.4 FL (87-102); Mean Platelet Volume 11.1 FL (9.6-12.0); NRBC # 0.13 10*3/uL; Neutrophils % 90.5 % (38.7-73.9); Platelet Count 74 T/CUMM (130-400); Red Blood Count 2.59 MC/CUMM (3.8-5.5); Red Cell Distribution Width 19.3 % (9.3-17.3); White Blood Count 10.8 T/CUMM (4-12)
[2021-11-30 05:20] LABS: Albumin 3.7 G/DL (3.4-5.0); Bilirubin,Total 3.9 MG/DL (0.20-1.00); Calcium 13.4 MG/DL (8.5-10.1); Osmolality,Calculated 287.7 MOS/KG (273-304); Potassium 3.8 MMOL/L (3.5-5.1); Total Protein 7.2 G/DL (6.4-8.2)
[2021-11-30 05:24] LABS: Hypochromia 1+; Lymphocytes 6 % (20-55); Microcytosis 1+; Platelet Estimate Decreased; Segmented Neutrophils 91 % (50-85); Total Cells Counted 100
[2021-11-30] MEDS: methylPREDNISolone SOD SUC 40 MG/1 ML VIAL IV SCH ×3 (06:00→17:26)
[2021-11-30] MEDS: THIAMINE 100 MG TABLET PO SCH (09:34)
[2021-11-30] MEDS: ASPIRIN CHEW 81 MG TABLET PO SCH (09:34)
[2021-11-30] MEDS: BENZONATATE 100 MG CAPSULE PO SCH ×3 (09:34→22:22)
[2021-11-30] MEDS: INSULIN REGULAR 100 UNIT/ML SUBCUT SCH ×4 (09:35→22:16)
[2021-11-30] MEDS: carvediloL 25 MG TABLET PO SCH ×2 (09:35→22:15)
[2021-11-30] MEDS: PANTOPRAZOLE 40 MG VIAL IV SCH (09:35)
[2021-11-30] MEDS: NICOTINE 21 MG/24 HR PATCH TRANSDERM SCH (09:36)
[2021-11-30] MEDS: POLYETHYLENE GLYCOL POWDER 17 GM PACK PO SCH ×3 (09:37→22:17)
[2021-11-30] MEDS: SODIUM CHLORIDE 0.9% 1,000 ML IV SCH (10:14)
[2021-11-30] MEDS: FLUCONAZOLE INJ 200 MG/100 ML PREMIX IV SCH (13:45)
[2021-11-30] MEDS ORDERED: MORPHINE 2 MG/1 ML SYRINGE IV PRN ×2 (14:21)
[2021-12-01] MEDS: ALBUTEROL/IPRATROPIUM 3 ML NEB RESP TX SCH ×4 (00:28→19:52)
[2021-12-01] MEDS: methylPREDNISolone SOD SUC 40 MG/1 ML VIAL IV SCH ×3 (00:55→18:15)
[2021-12-01 06:24] LABS: Basophils % 0.2 % (0.0-0.8); Hematocrit 22.3 VOL% (35.7-47.0); Hemoglobin 7.1 GM/DL (12.0-16.0); Immature Granulocytes % 3.6 %; Immature Granulocytes Absolute 0.41 #; Lymphocytes # 0.4 10*3/uL (1.4-4.0); Lymphocytes % 3.1 % (21.3-54.2); Mean Corpuscular HGB Conc 31.8 GM/DL (32-36); Mean Corpuscular Volume 96.5 FL (87-102); Mean Platelet Volume 11.1 FL (9.6-12.0); Monocytes % 3.5 % (1.7-12.7); NRBC # 0.19 10*3/uL; Neutrophils % 89.6 % (38.7-73.9); Platelet Count 64 T/CUMM (130-400); Red Blood Count 2.31 MC/CUMM (3.8-5.5); Red Cell Distribution Width 19.6 % (9.3-17.3); White Blood Count 11.2 T/CUMM (4-12)
[2021-12-01 06:42] LABS: Albumin 3.5 G/DL (3.4-5.0); Bilirubin,Total 3.9 MG/DL (0.20-1.00); Calcium 13.9 MG/DL (8.5-10.1); Osmolality,Calculated 300.7 MOS/KG (273-304); Potassium 4.4 MMOL/L (3.5-5.1); Total Protein 6.9 G/DL (6.4-8.2)
[2021-12-01 06:45] LABS: Band Neutrophils 1 % (0-10); Hypochromia 1+; Lymphocytes 10 % (20-55); Microcytosis 1+; Nucleated Red Blood Cells 2 (0-5); Platelet Estimate Decreased; Segmented Neutrophils 88 % (50-85); Total Cells Counted 100
[2021-12-01] MEDS ORDERED: SODIUM CHLORIDE 0.9% 1,000 ML IV PRN (06:58)
[2021-12-01] MEDS ORDERED: LORazepam 2 MG/1 ML VIAL IV ONE (10:45)
[2021-12-01] MEDS: INSULIN REGULAR 100 UNIT/ML SUBCUT SCH ×4 (13:34→21:43)
[2021-12-01] MEDS: BENZONATATE 100 MG CAPSULE PO SCH ×3 (13:39→21:43)
[2021-12-01] MEDS: SODIUM CHLORIDE 0.9% 1,000 ML IV SCH (13:52)
[2021-12-01] MEDS: POLYETHYLENE GLYCOL POWDER 17 GM PACK PO SCH ×3 (15:23→21:43)
[2021-12-01] MEDS: FLUCONAZOLE 100 MG TABLET PO SCH (15:47)
[2021-12-01] MEDS: THIAMINE 100 MG TABLET PO SCH (15:47)
[2021-12-01] MEDS: carvediloL 25 MG TABLET PO SCH ×2 (15:47→21:43)
[2021-12-01] MEDS: PANTOPRAZOLE 40 MG VIAL IV SCH (15:47)
[2021-12-01] MEDS: NICOTINE 21 MG/24 HR PATCH TRANSDERM SCH (15:47)
[2021-12-01] MEDS: ACETYLCYSTEINE 600 MG CAPSULE PO SCH (18:10)
[2021-12-01] MEDS: ASPIRIN CHEW 81 MG TABLET PO SCH (18:14)
[2021-12-01] MEDS ORDERED: SODIUM POLYSTYRENE SULFATE 15 GM/60 ML BOTTLE PO ONE (21:00)
[2021-12-02] MEDS: ALBUTEROL/IPRATROPIUM 3 ML NEB RESP TX SCH ×4 (01:20→19:48)
[2021-12-02] MEDS: methylPREDNISolone SOD SUC 40 MG/1 ML VIAL IV SCH ×3 (01:43→18:10)
[2021-12-02] MEDS: ACETYLCYSTEINE 600 MG CAPSULE PO SCH ×3 (01:43→22:35)
[2021-12-02 05:28] LABS: Basophils % 0.2 % (0.0-0.8); Hematocrit 25.5 VOL% (35.7-47.0); Hemoglobin 8.4 GM/DL (12.0-16.0); Immature Granulocytes % 2.7 %; Immature Granulocytes Absolute 0.33 #; Lymphocytes # 0.3 10*3/uL (1.4-4.0); Lymphocytes % 2.6 % (21.3-54.2); Mean Corpuscular HGB Conc 32.9 GM/DL (32-36); Mean Corpuscular Volume 93.8 FL (87-102); Mean Platelet Volume 10.9 FL (9.6-12.0); Monocytes % 1.6 % (1.7-12.7); NRBC # 0.27 10*3/uL; Neutrophils % 92.9 % (38.7-73.9); Platelet Count 64 T/CUMM (130-400); Red Blood Count 2.72 MC/CUMM (3.8-5.5); Red Cell Distribution Width 18.8 % (9.3-17.3); White Blood Count 12.5 T/CUMM (4-12)
[2021-12-02 05:52] LABS: Hypochromia 1+; Lymphocytes 3 % (20-55); Microcytosis 1+; Nucleated Red Blood Cells 1 (0-5); Platelet Estimate Decreased; Segmented Neutrophils 96 % (50-85); Total Cells Counted 100
[2021-12-02 06:05] LABS: Albumin 3.3 G/DL (3.4-5.0); Bilirubin,Total 4.2 MG/DL (0.20-1.00); Calcium 12.5 MG/DL (8.5-10.1); Osmolality,Calculated 307.7 MOS/KG (273-304); Potassium 5.1 MMOL/L (3.5-5.1); Total Protein 6.8 G/DL (6.4-8.2)
[2021-12-02] MEDS ORDERED: DIAZEPAM 5 MG TABLET PO ONE (14:39)
[2021-12-02] MEDS: NICOTINE 21 MG/24 HR PATCH TRANSDERM SCH (15:21)
[2021-12-02] MEDS: INSULIN REGULAR 100 UNIT/ML SUBCUT SCH ×2 (18:08→22:32)
[2021-12-02] MEDS: ASPIRIN CHEW 81 MG TABLET PO SCH (18:09)
[2021-12-02] MEDS: SODIUM CHLORIDE 0.9% 1,000 ML IV SCH (18:09)
[2021-12-02] MEDS: THIAMINE 100 MG TABLET PO SCH (18:10)
[2021-12-02] MEDS: BENZONATATE 100 MG CAPSULE PO SCH ×3 (18:10→22:32)
[2021-12-02] MEDS: SODIUM CHLORIDE 0.45% 1,000 ML IV SCH (18:11)
[2021-12-02] MEDS: POLYETHYLENE GLYCOL POWDER 17 GM PACK PO SCH ×3 (18:13→22:33)
[2021-12-02] MEDS: FLUCONAZOLE 100 MG TABLET PO SCH (18:13)
[2021-12-02] MEDS: carvediloL 25 MG TABLET PO SCH ×2 (18:15→22:32)
[2021-12-02] MEDS: PANTOPRAZOLE 40 MG VIAL IV SCH (18:17)
[2021-12-03] MEDS: ALBUTEROL/IPRATROPIUM 3 ML NEB RESP TX SCH ×4 (00:25→19:30)
[2021-12-03] MEDS: methylPREDNISolone SOD SUC 40 MG/1 ML VIAL IV SCH ×3 (02:31→16:54)
[2021-12-03 06:23] LABS: Calcium 12.8 MG/DL (8.5-10.1); Potassium 3.8 MMOL/L (3.5-5.1)
[2021-12-03 06:40] LABS: Basophils % 0.3 % (0.0-0.8); Hematocrit 29.3 VOL% (35.7-47.0); Hemoglobin 9.8 GM/DL (12.0-16.0); Immature Granulocytes % 2.8 %; Immature Granulocytes Absolute 0.32 #; Lymphocytes # 0.3 10*3/uL (1.4-4.0); Lymphocytes % 2.6 % (21.3-54.2); Mean Corpuscular HGB Conc 33.4 GM/DL (32-36); Mean Corpuscular Volume 92.4 FL (87-102); Mean Platelet Volume 10.7 FL (9.6-12.0); Monocytes % 2.2 % (1.7-12.7); NRBC # 0.36 10*3/uL; Neutrophils % 92.1 % (38.7-73.9); Platelet Count 51 T/CUMM (130-400); Red Blood Count 3.17 MC/CUMM (3.8-5.5); Red Cell Distribution Width 18.4 % (9.3-17.3); White Blood Count 11.5 T/CUMM (4-12)
[2021-12-03 07:02] LABS: Band Neutrophils 1 % (0-10); Hypochromia 1+; Lymphocytes 2 % (20-55); Microcytosis 1+; Nucleated Red Blood Cells 7 (0-5); Platelet Estimate Decreased; Segmented Neutrophils 95 % (50-85); Total Cells Counted 100
[2021-12-03] MEDS: SODIUM CHLORIDE 0.9% 1,000 ML IV SCH (07:56)
[2021-12-03] MEDS: carvediloL 25 MG TABLET PO SCH (09:08)
[2021-12-03] MEDS: BENZONATATE 100 MG CAPSULE PO SCH ×2 (09:08→15:35)
[2021-12-03] MEDS: THIAMINE 100 MG TABLET PO SCH (09:08)
[2021-12-03] MEDS: FLUCONAZOLE 100 MG TABLET PO SCH (09:08)
[2021-12-03] MEDS: ACETYLCYSTEINE 600 MG CAPSULE PO SCH (09:09)
[2021-12-03] MEDS: NICOTINE 21 MG/24 HR PATCH TRANSDERM SCH (09:09)
[2021-12-03] MEDS: POLYETHYLENE GLYCOL POWDER 17 GM PACK PO SCH ×2 (09:09→15:35)
[2021-12-03] MEDS: PANTOPRAZOLE 40 MG VIAL IV SCH (09:11)
[2021-12-03] MEDS: INSULIN REGULAR 100 UNIT/ML SUBCUT SCH ×3 (09:13→16:00)
[2021-12-03] MEDS: ASPIRIN CHEW 81 MG TABLET PO SCH (09:16)
[2021-12-03] MEDS: SODIUM CHLORIDE 0.45% 1,000 ML IV SCH (14:15)
[2021-12-03 17:33] VITALS: BP 81/55
[2021-12-03] MEDS ORDERED: LACTULOSE 20 GM/30 ML UDCUP PO SCH (21:00)
== END 2021-12-03 19:24 | disposition expired | DRG 435 ==
LOC: EDUNIT# → EDBD → N.ED 16:25 → N.EDINP 19:34 → N.TELEN 11-22 12:10
PROVIDERS: ADMIT Internal Medicine; ATTEND Internal Medicine